=== PATIENT | female | born 1995 | race Caucasian/White ===

== ENCOUNTER 2016-06-03 20:21 | Emergency (ER) | payer BC, OTHER ==
[~2016-06-03] VITALS: Ht 162.6 cm; Wt 49.8 kg
[~2016-06-03 20:21] MED LIST: MTR600X PO; PRENTAB26 PO
[2016-06-03 20:29] VITALS: TEMP 37; Ht 162.6 cm; Wt 49.8 kg
[2016-06-03] MEDS ORDERED: SODIUM CHLORIDE 0.9% 1000ML 2,000 ML IV STA (20:44)
[2016-06-03 21:14] LABS: BASO % 0.2 %; BASO ABS # 0.01 K/uL (0-0.2); COMPLETE YES; EOS % 0.7 %; HEMATOCRIT 42.9 % (37-47); IG% 0.2 %; LYMPH % 16.6 %; LYMPH ABS # 0.96 K/uL (1.2-3.4); MEAN CELL VOLUME 86.1 fL (80-100); MEAN CORPUSCULAR HEMOGLOBIN 30.5 pg (25-34); MEAN CORPUSCULAR HGB CONC 35.4 g/dl (32-36); MONO % 11.2 %; NEUT % 71.1 %; PLATELET COUNT 207 K/uL (130-400); RED BLOOD COUNT 4.98 M/uL (4.2-5.4)
[2016-06-03 21:31] LABS: ALT/SGPT 14 U/L (12-78); BLOOD UREA NITROGEN 7 mg/dl (7-18); BUN/CREATININE RATIO 9.6 (10-20); CARBON DIOXIDE 26 mmol/L (21-32); CHLORIDE 103 mmol/L (98-107); CREATININE 0.72 mg/dl (0.60-1.20); GLUCOSE 98 mg/dl (70-99); POTASSIUM 3.5 mmol/L (3.5-5.1); SODIUM 138 mmol/L (136-145)
[2016-06-03 21:34] LABS: ALKALINE PHOSPHATASE 61 U/L (45-117); AST/SGOT 9 U/L (15-37)
[2016-06-03] MEDS ORDERED: KETOROLAC TROMETHAMINE 30 MG/ML VIAL IV STA (21:35)
[2016-06-03] MEDS ORDERED: ONDANSETRON INJ 2 MG/ML 2 ML VIAL IV STA (21:35)
[2016-06-03] MEDS ORDERED: BCPILLS PO (21:46)
[2016-06-03] MEDS ORDERED: EPP3/2 IM (21:47)
[2016-06-03 22:50] LABS: URINE APPEARANCE CLOUDY (CLEAR); URINE BILIRUBIN NEG (NEG); URINE COLOR YELLOW; URINE EPITHELIAL CELL AUTO >30 /lpf (0-5); URINE NITRITE NEG (NEG); URINE PH 6.5 (4.5-7.5); URINE SPECIFIC GRAVITY 1.019 (1.000-1.030); UROBILINOGEN NEG (NEG)
[2016-06-03 22:52] LABS: MANUAL MICROSCOPIC REQUIRED? NO; REVIEW REQ? NO
[2016-06-04 01:02] LABS: ZZUR CULT IF INDIC CLEAN CATCH YES
[2016-06-04] MEDS ORDERED: ONDANSETRON HOME PACK 4MG OD TAB PO ONE (01:15)
[2016-06-04 01:25] VITALS: BP 99/64; PULSE 63; O2SAT 96
--- NOTE | 2016-06-04 03:01 | EMERGENCY ROOM VISIT NOTE ---
History Report prepared by Ailyn: Rob Pino Under the Supervision of: Dr. Todd Sandoval M.D. First contact with patient: 20:43 Chief Complaint: FLU LIKE SX Stated Complaint: VERY ILL, VOMITING, BODY ACHES History of Present Illness The patient is a 20 year old female who presents to the Emergency Room with complaints of persistent vomiting that started in the middle of the night last night. The patient notes that she has had at least 4 episodes of vomiting. She also complains of body aches, nausea and diarrhea. The patient notes that she is not able to keep anything down. She denies eating anything different. 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 Last menstrual cycle was last month. Patient denies any vaginal bleeding or discharge. Pt denies LOC, headache, fevers, chills, diaphoresis, visual changes, neck pain, chest pain, breathing difficulties, abdominal pain, back pain, melena, hematochezia, urinary symptoms , numbness, lymphadenopathy, rash, or other complaints. Source of History: patient Onset: middle of the night last night Timing: other (persistent) Associated Symptoms: + diarrhea, + nausea Note: Other associated symptoms: body aches Review of Systems See HPI for pertinent positives and negatives. A total of ten systems were reviewed and were otherwise negative. Past Medical & Surgical Medical Problems: (1) Cramping affecting , antepartum (2) Decreased movement in in third trimester, antepartum (3) Disloc Shoulder Nos-Clos (4) Nail avulsion, finger (5) Nausea and vomiting during (6) Surgical Problems: (1) Hx of tonsillectomy Family History Cancer Diabetes mellitus Heart disease Hypertension Social History Smoking Status: Current Every Day Smoker Alcohol Use: none Drug Use: none Marital Status: single Housing Status: lives with family Occupation Status: student Current/Historical Medications Scheduled Control Pills ( Control Pills), 1 TAB PO DAILY Scheduled PRN Epinephrine (Epipen), 0.3 MG IM UD PRN for ALLERGIC REACTION Allergies Coded Allergies: BEE STING (Verified Allergy, Severe, ANAPHYLAXIS, 07/03/15) Physical Exam Vital Signs Date Time Temp Pulse Resp B/P Pulse Ox O2 Delivery O2 Flow Rate FiO2 06/04/16 01:25 63 18 99/64 96 06/04/16 00:59 63 18 99/64 96 Room Air 06/03/16 23:31 81 18 103/48 97 Room Air 06/03/16 22:33 67 91/41 06/03/16 20:29 37.0 88 18 117/67 98 Room Air Physical Exam GENERAL: Awake, alert, well appearing, in no acute distress HEAD: Normocephalic, atraumatic. No edema. EYES: Normal conjunctiva. Sclera non-icteric. OROPHARYNX: Lips, tongue, and mucosa unremarkable. No erythema or exudate. NECK: Supple. No nuchal rigidity. FROM. No adenopathy. RESPIRATORY: CTA bilaterally. No wheezes rales or rhonchi. CARDIAC: Borderline tachycardic rate, normal rhythm. ABDOMEN: Soft, non distended. no tenderness to palpation. No rebound or guarding. MUSCULOSKELETAL: Atraumatic. No edema. NEURO: Normal sensorium. SKIN: No rash or jaundice noted Medical Decision & Procedures Laboratory Results 06/03/16 20:58 Red Blood Count 4.98, Mean Corpuscular Volume 86.1, Mean Corpuscular Hemoglobin 30.5, Mean Corpuscular Hemoglobin Concent 35.4, Mean Platelet Volume 10.0, Neutrophils (%) (Auto) 71.1, Lymphocytes (%) (Auto) 16.6, Monocytes (%) (Auto) 11.2, Eosinophils (%) (Auto) 0.7, Basophils (%) (Auto) 0.2, Neutrophils # (Auto ) 4.13, Lymphocytes # (Auto) 0.96, Monocytes # (Auto) 0.65, Eosinophils # (Auto ) 0.04, Basophils # (Auto) 0.01 06/03/16 20:58 Test 06/03/16 20:58 06/03/16 22:29 White Blood Count 5.80 K/uL (4.8-10.8) Red Blood Count 4.98 M/uL (4.2-5.4) Hemoglobin 15.2 g/dL (12.0-16.0) Hematocrit 42.9 % (37-47) Mean Corpuscular Volume 86.1 fL (80-100) Mean Corpuscular Hemoglobin 30.5 pg (25-34) Mean Corpuscular Hemoglobin Concent 35.4 g/dl (32-36) Platelet Count 207 K/uL (130-400) Mean Platelet Volume 10.0 fL (7.4-10.4) Neutrophils (%) (Auto) 71.1 % Lymphocytes (%) (Auto) 16.6 % Monocytes (%) (Auto) 11.2 % Eosinophils (%) (Auto) 0.7 % Basophils (%) (Auto) 0.2 % Neutrophils # (Auto) 4.13 K/uL (1.4-6.5) Lymphocytes # (Auto) 0.96 K/uL (1.2-3.4) Monocytes # (Auto) 0.65 K/uL (0.11-0.59) Eosinophils # (Auto) 0.04 K/uL (0-0.5) Basophils # (Auto) 0.01 K/uL (0-0.2) RDW Standard Deviation 42.8 fL (36.4-46.3) RDW Coefficient of Variation 13.5 % (11.5-14.5) Immature Granulocyte % (Auto) 0.2 % Immature Granulocyte # (Auto) 0.01 K/uL (0.00-0.02) Anion Gap 9.0 mmol/L (3-11) Est Creatinine Clear Calc Drug Dose 97.2 ml/min Estimated GFR () 138.7 Estimated GFR (Non- 119.7 BUN/Creatinine Ratio 9.6 (10-20) Calcium Level 9.0 mg/dl (8.5-10.1) Total Bilirubin 0.2 mg/dl (0.2-1) Direct Bilirubin < 0.1 mg/dl (0-0.2) Aspartate Amino Transf (AST/SGOT) 9 U/L (15-37) Alanine Aminotransferase (ALT/SGPT) 14 U/L (12-78) Alkaline Phosphatase 61 U/L (45-117) Total Protein 7.6 gm/dl (6.4-8.2) Albumin 4.2 gm/dl (3.4-5.0) Lipase 74 U/L (73-393) Human Chorionic Gonadotropin, Quant 55028 mIU/mL Urine Color YELLOW Urine Appearance CLOUDY (CLEAR) Urine pH 6.5 (4.5-7.5) Urine Specific [place] 1.019 (1.000-1.030) Urine Protein NEG (NEG) Urine Glucose (UA) NEG (NEG) Urine Ketones 4+ (NEG) Urine Occult Blood NEG (NEG) Urine Nitrite NEG (NEG) Urine Bilirubin NEG (NEG) Urine Urobilinogen NEG (NEG) Urine Leukocyte Esterase TRACE (NEG) Urine WBC (Auto) 5-10 /hpf (0-5) Urine RBC (Auto) 5-10 /hpf (0-4) Urine Hyaline Casts (Auto) 5-10 /lpf (0-5) Urine Epithelial Cells (Auto) >30 /lpf (0-5) Urine Bacteria (Auto) 2+ (NEG) Urine Test POS (NEG) Laboratory results reviewed by me Medications Administered Medications (Trade) Dose Ordered Sig/Zohra Route Start Time Stop Time Status Last Admin Dose Admin Sodium Chloride (Nss 1000ml) 2,000 ml @ 999 mls/hr Q2H1M STAT IV 06/03/16 20:44 06/03/16 22:44 DC 06/03/16 21:06 999 MLS/HR Ketorolac Tromethamine (Toradol Inj) 30 mg NOW STAT IV 06/03/16 21:35 06/03/16 21:36 DC 06/03/16 21:55 30 MG Ondansetron HCl (Zofran Inj) 4 mg NOW STAT IV 06/03/16 21:35 06/03/16 21:36 DC 06/03/16 21:54 4 MG Ondansetron HCl (ZOFRAN ODT 4MG Home Pack) 1 homepack UD ONCE PO 06/04/16 01:15 06/04/16 01:16 DC 06/04/16 01:21 1 HOMEPACK ED Course 4: Ordered NSS 2000 ml @ 999 mls/hr IV 7: The patient was evaluated in room A10. A complete history and physical exam was performed. 5: Ordered Zofran Inj 4 mg IV, Toradol Inj 30 mg IV. 2345: At this time, I reevaluated the patient and she is feeling much better. She is waiting on a confirmation test after her lab results. 0115: Ordered Ondansetron HCl 1 homepack PO. 0117: I reevaluated the patient. Discussed results and discharge instructions: She verbalized understanding and agreement. The patient is ready for discharge. Medical Decision Prior records/ancillary studies reviewed. Triage Nursing notes reviewed and agree them. Additional history obtained from the family. The patient's history was concerning for nausea, vomiting, diarrhea, and abdominal pain. Differential diagnosis: Etiologies such as gastroenteritis, food borne illness, infections, appendicitis , diverticulitis, inflammatory bowel disease, GI bleed, biliary pathology, as well as others were entertained. Physical examination findings: As above. Benign abdomen. ER treatment provided: IV hydration 2 L NSS. IV Zofran IV Toradol On reassessment the patient felt better. Patient was tolerating p.o. intake. Diagnostics interpretation by me: The labs revealed an unremarkable CBC and chemistry panel. Urinalysis is negative. LFTs and lipase negative. Urine was positive. The patient was very surprised by this. Serum performed. HCG was consistent with a 4-6 week gestation. Imaging studies: Deferred The patient presented with vomiting and diarrhea. She had myalgias. She had a benign abdomen. She was hydrated. She was given the above medications and felt significantly better. There was some delay in obtaining a urine specimen due to the patient's symptoms and this was eventually done. The patient had an unremarkable urinalysis but urine test was positive. This was confirmed via serum hCG measurement. The patient appears to be as well. She does not give a history supportive of morning sickness. She has more of a gastroenteritis-like presentation. Since she is doing exceptionally well at this time and is tolerating oral intake I will have her start . The patient was referred to the [facility]. If she worsens in any way she will come back to the emergency room for reevaluation. I gave my usual and customary discussion regarding this issue. By the evaluation outlined above emergent etiologies such as appendicitis, diverticulitis, mesenteric ischemia, aortic pathology, inflammatory bowel disease, renal colic, PUD, biliary pathology, UTI, as well as others were deemed relatively unlikely. The patient and significant other were informed about the findings as listed above. All questions were answered and they were pleased with the treatment. Return instructions were outlined and the patient was discharged in stable condition. Outpatient prescription management: Zofran home pack The chart was completed utilizing [employer] voice recognition software. Grammatical errors, random word insertions, pronoun errors, and incomplete sentences are an occasional consequence of this system due to software limitations, ambient noise, and hardware issues. Any formal questions or concerns about the content, text, or information contained within the body of this dictation should be directly addressed to the physician for clarification. Impression Primary Impression: Nausea vomiting and diarrhea Additional Impression: First trimester Scribe Attestation The scribe's documentation has been prepared under my direction and personally reviewed by me in its entirety. I confirm that the note above accurately reflects all work, treatment, procedures, and medical decision making performed by me. Departure Information Dispostion Home / Self-Care Referrals No Doctor, Assigned (PCP) Forms HOME CARE DOCUMENTATION FORM, IMPORTANT VISIT INFORMATION Patient Instructions My [facility] Health Problem Qualifiers
== END 2016-06-04 01:29 | disposition home or self-care (01) ==
LOC: C.EDB 20:22 → C.EDA 06-04 01:29
DX: O21.9 Vomiting of pregnancy, unspecified (principal); R19.7 Diarrhea, unspecified; F17.200 Nicotine dependence, unspecified, uncomplicated; Z87.828 Personal history of other (healed) physical injury and trauma; Z98.890 Other specified postprocedural states; Z91.030 Bee allergy status; Z80.9 Family history of malignant neoplasm, unspecified; Z83.3 Family history of diabetes mellitus; Z82.49 Family history of ischemic heart disease and other diseases of the circulatory system

== ENCOUNTER 2016-06-12 11:06 | Emergency (ER) | payer BC, OTHER ==
[~2016-06-12] VITALS: Ht 163.8 cm; Wt 49.4 kg
[~2016-06-12 11:06] MED LIST changes: +BCPILLS PO; +EPP3/2 IM; -MTR600X PO; -PRENTAB26 PO
[2016-06-12 11:20] VITALS: TEMP 36.8; Ht 163.8 cm; Wt 49.4 kg
[2016-06-12] MEDS ORDERED: ONDA4TAB10 SL (11:39)
[2016-06-12] MEDS ORDERED: PEDI1CHW82 PO (11:39)
[2016-06-12] MEDS ORDERED: SODIUM CHLORIDE 0.9% 1000ML 1,000 ML IV STA (11:53)
[2016-06-12] MEDS ORDERED: ONDANSETRON INJ 2 MG/ML 2 ML VIAL IV STA (11:53)
[2016-06-12 12:21] LABS: BASO % 0.2 %; BASO ABS # 0.02 K/uL (0-0.2); COMPLETE YES; EOS % 0.7 %; IG% 0.1 %; LYMPH % 19.4 %; LYMPH ABS # 1.61 K/uL (1.2-3.4); MEAN CELL VOLUME 85.1 fL (80-100); MEAN CORPUSCULAR HEMOGLOBIN 29.8 pg (25-34); MEAN PLATELET VOLUME 9.7 fL (7.4-10.4); MONO % 5.1 %; NEUT % 74.5 %; PLATELET COUNT 258 K/uL (130-400); WHITE BLOOD COUNT 8.31 K/uL (4.8-10.8)
[2016-06-12 12:38] LABS: ALT/SGPT 16 U/L (12-78); AST/SGOT 9 U/L (15-37); BLOOD UREA NITROGEN 8 mg/dl (7-18); BUN/CREATININE RATIO 11.9 (10-20); CARBON DIOXIDE 25 mmol/L (21-32); CHLORIDE 105 mmol/L (98-107); CREATININE 0.65 mg/dl (0.60-1.20); GLUCOSE 89 mg/dl (70-99); POTASSIUM 3.8 mmol/L (3.5-5.1); SODIUM 139 mmol/L (136-145)
[2016-06-12 12:41] LABS: ALKALINE PHOSPHATASE 55 U/L (45-117)
--- NOTE | 2016-06-12 15:10 | DIAGNOSTIC IMAGING REPORT ---
ULTRASOUND OF THE GRAVID UTERUS AND PELVIS CLINICAL HISTORY: . Fall. Vomiting. COMPARISON STUDY: Pelvic ultrasound dated 11/28/2014. TECHNIQUE: Real-time, grayscale, and color flow sonography of the gravid uterus and pelvis is performed transabdominally. Images are reviewed in the transverse and longitudinal planes. FINDINGS: Uterus: The gravid uterus is mildly enlarged and heterogeneous in echotexture, measuring 9.3 x 5.2 x 5.9 cm. The cervix appears closed. Gestation: There is a single live uterine gestation with an estimated heart rate of 146 bpm. The mean gestational sac diameter measures 2.07 cm, corresponding to estimated age of 6 weeks 3 days. The pole measures 1.29 cm, corresponding to an estimated age of 7 weeks 3 days. A yolk sac is identified. Ovaries: The ovaries are normal in size and morphology. The right ovary measures 2.2 x 2.6 x 2.7 cm and the left ovary measures 2.8 x 1.5 x 1.7 cm. Small follicles are identified. Normal Doppler waveforms are shown within both ovaries. Pelvis: There is trace free fluid in the cul-de-sac. No concerning adnexal lesion is seen. IMPRESSION: 1. There is a single live intrauterine gestation with an estimated age of 7 weeks 3 days by crown-rump length measurement. 2. The ovaries are normal as visualized. 3. Trace nonspecific free fluid is noted in the cul-de-sac. Electronically signed by: Bladimir Espinosa M.D. 06/12/2016 3:09 PM Dictated Date/Time: 06/12/2016 3:04 PM
[2016-06-12] MEDS ORDERED: ONDA4TAB65 PO (15:19)
[2016-06-12 15:31] VITALS: BP 101/55; PULSE 62; O2SAT 99
[2016-06-12 15:49] LABS: URINE APPEARANCE CLEAR (CLEAR); URINE BILIRUBIN NEG (NEG); URINE COLOR YELLOW; URINE NITRITE NEG (NEG); URINE PH 7.5 (4.5-7.5); URINE SPECIFIC GRAVITY 1.021 (1.000-1.030); UROBILINOGEN NEG (NEG)
[2016-06-12 15:53] LABS: MANUAL MICROSCOPIC REQUIRED? NO; REVIEW REQ? NO
--- NOTE | 2016-06-15 09:18 | EMERGENCY ROOM VISIT NOTE ---
ED Visit Note First contact with patient: 11:37 Chief Complaint: Abdominal pain. History of Present Illness: Ms. Reynaga is a 20 year-old white female who ambulates into the ED accompanied by her mother and a male friend complaining of nausea and vomiting and abdominal pain. Historically patient reports is 2 para 1 with protracted nausea vomiting with her first . Patient reports her last normal menstrual cycle was in mid April. Patient reports she was found to be 4-6 weeks on June 04. She has not been able to follow-up with her [facility] physician until later this month. She reports since her diagnosis she has been having daily nausea and vomiting with 2-3 episodes of vomiting every day. After her vomiting resolves so does her nausea. She's had no other associated symptoms with her nausea and vomiting. Today, approximately 2-3 hours ago, she reports she was walking on a icey driveway she slipped and struck her own abdomen with her elbow. Since that time she reports she's been having bilateral mid abdominal pain just inferior to the umbilicus. She describes this as a stabbing but not sharp pain. She rates her discomfort 4/10. The pain is nonradiating. The pain worsens with palpation and movements at the abdomen. She has not identified any alleviating factors related to the pain. She has not taken any medications for pain prior to arrival at the hospital. Associated with her pain she reports she's had increased nausea/vomiting and has had 6 episodes of vomiting. Patient denies fevers, chills, sweats, skin eruptions, skin color changes, upper respiratory tract symptoms, shortness of breath, chest pain, diarrhea, constipation, rectal bleeding, black/tarry stools, urinary symptoms, hematuria, vaginal bleeding, vaginal discharge, back/flank pain. Review of Systems: As noted above in history of present illness. All body systems were reviewed and found to be negative as noted above. Past Medical History: As previously noted Current Medications: EpiPen, multivitamins. Allergies to Medications: Patient denies. Social History: Patient is currently employed; she feels safe in her home environment; she admits to tobacco use. Physical Examination: Vital Signs: Date Time Temp Pulse Resp B/P Pulse Ox O2 Delivery O2 Flow Rate FiO2 06/12/16 15:31 62 16 101/55 99 Room Air 06/12/16 13:42 62 16 93/57 99 Room Air 06/12/16 12:59 68 06/12/16 11:20 36.8 99 16 98/64 98 Room Air GENERAL: 20-year-old female in mild distress due to pain, nontoxic-appearing, afebrile and hemodynamically stable. NEUROLOGICAL: Awake, alert and oriented to person, place and time. Answering questions appropriately and following commands. Normal gait. Good hand eye coordination. SKIN: Warm, dry and pink. No soft tissue eruptions or trauma noted. HEENT: Atraumatic and normocephalic. PERRL. Sclera white and conjunctiva pink. Oral cavity moist and pink. Pharynx is nonerythematous or edematous. Speech normal. No lymphadenopathy. Trachea midline. No jugular venous distention. BACK: No tenderness over the bony spine. No CVA tenderness. THORAX: Lungs sounds are clear to auscultation and equal bilaterally with symmetrical chest wall. No wheezing, rales or rhonchi. No crepitus, tenderness , subcutaneous air or deformities noted. HEART: Regular rate and rhythm. No gallops, rubs or murmurs are appreciated. ABDOMEN: Flat and soft with mild mid quadrant tenderness and mild right upper quadrant tenderness. Positive bowel sounds in all quadrants. No guarding, rigidity or organomegaly. EXTREMITIES: Moves all extremities well on command and with purpose. All distal neurovascular statuses are intact and equal bilaterally. ED Course: Patient is assessed as noted above. Laboratory Testing: Test 06/12/16 12:00 06/12/16 15:15 Range/Units White Blood Count 8.31 4.8-10.8 K/uL Red Blood Count 4.70 4.2-5.4 M/uL Hemoglobin 14.0 12.0-16.0 g/dL Hematocrit 40.0 37-47 % Mean Corpuscular Volume 85.1 80-100 fL Mean Corpuscular Hemoglobin 29.8 25-34 pg Mean Corpuscular Hemoglobin Concent 35.0 32-36 g/dl Platelet Count 258 130-400 K/uL Mean Platelet Volume 9.7 7.4-10.4 fL Neutrophils (%) (Auto) 74.5 % Lymphocytes (%) (Auto) 19.4 % Monocytes (%) (Auto) 5.1 % Eosinophils (%) (Auto) 0.7 % Basophils (%) (Auto) 0.2 % Neutrophils # (Auto) 6.19 1.4-6.5 K/uL Lymphocytes # (Auto) 1.61 1.2-3.4 K/uL Monocytes # (Auto) 0.42 0.11-0.59 K/uL Eosinophils # (Auto) 0.06 0-0.5 K/uL Basophils # (Auto) 0.02 0-0.2 K/uL RDW Standard Deviation 41.2 36.4-46.3 fL RDW Coefficient of Variation 13.3 11.5-14.5 % Immature Granulocyte % (Auto) 0.1 % Immature Granulocyte # (Auto) 0.01 0.00-0.02 K/uL Sodium Level 139 136-145 mmol/L Potassium Level 3.8 3.5-5.1 mmol/L Chloride Level 105 98-107 mmol/L Carbon Dioxide Level 25 21-32 mmol/L Anion Gap 9.0 3-11 mmol/L Blood Urea Nitrogen 8 7-18 mg/dl Creatinine 0.65 0.60-1.20 mg/dl Est Creatinine Clear Calc Drug Dose 106.8 ml/min Estimated GFR () 147.1 Estimated GFR (Non- 126.9 BUN/Creatinine Ratio 11.9 10-20 Random Glucose 89 70-99 mg/dl Calcium Level 9.0 8.5-10.1 mg/dl Total Bilirubin 0.3 0.2-1 mg/dl Direct Bilirubin < 0.1 0-0.2 mg/dl Aspartate Amino Transf (AST/SGOT) 9 15-37 U/L Alanine Aminotransferase (ALT/SGPT) 16 12-78 U/L Alkaline Phosphatase 55 45-117 U/L Total Protein 7.2 6.4-8.2 gm/dl Albumin 4.1 3.4-5.0 gm/dl Lipase 81 73-393 U/L Human Chorionic Gonadotropin, Quant 90546 mIU/mL Urine Color YELLOW Urine Appearance CLEAR CLEAR Urine pH 7.5 4.5-7.5 Urine Specific [place] 1.021 1.000-1.030 Urine Protein NEG NEG Urine Glucose (UA) NEG NEG Urine Ketones 1+ NEG Urine Occult Blood NEG NEG Urine Nitrite NEG NEG Urine Bilirubin NEG NEG Urine Urobilinogen NEG NEG Urine Leukocyte Esterase NEG NEG Ultrasound: Was reviewed by myself and read the radiologist showing a single Review of stay she with estimated age of 7 weeks and 3 days with a heart rate of 146, normal-appearing ovaries, trace nonspecific free fluid in the cul- de-sac. Patient was hydrated with normal saline and received 4 mg of Zofran IV. Patient was reassessed multiple times during her stay in the emergency department. Prior to discharge patient was trying to crackers and juice and had no return nausea/vomiting. Patient's case was reviewed with Dr. Bernard; we agreed on diagnostic approach, treatment, disposition and plan. Patient was educated about tonight's findings and instructed on her treatment plan; she verbalizes understanding and agreement with this plan. Clinical Impression: Nausea and vomiting during . Abdominal pain. Decision-Making: Initially my differential diagnosis I considered morning sickness, hyperemesis gravidarum, ectopic , miscarriage, gastroenteritis and other causes. Disposition: Patient discharged home in stable condition accompanied by her boyfriend; prior to departure she was reassessed and subjectively reported she was feeling much better and had resolution of nausea and has not vomited since she ED and she had resolution of all abdominal pain. Plan: Patient was encouraged use 650 mg of acetaminophen every 6 hours as needed for pain. Patient did report she had no DVT Zofran but requested oral tablets and I provided her with a prescription. Patient was encouraged to stop smoking. Patient was encouraged to follow-up with [facility] physician for a possible earlier appointment. Patient was encouraged return ED for worsening pain, vaginal bleeding, worsening nausea/vomiting, bloody vomitus, fevers or any new/concerning symptoms.
== END 2016-06-12 15:32 | disposition home or self-care (01) ==
LOC: C.EDB 11:09 → C.EDD 15:32
DX: O21.9 Vomiting of pregnancy, unspecified (principal); O26.891 Other specified pregnancy related conditions, first trimester; R10.9 Unspecified abdominal pain; O99.331 Smoking (tobacco) complicating pregnancy, first trimester; F17.200 Nicotine dependence, unspecified, uncomplicated; Z3A.01 Less than 8 weeks gestation of pregnancy; W00.0XXA Fall on same level due to ice and snow, initial encounter; Y93.01 Activity, walking, marching and hiking; Y99.8 Other external cause status

== ENCOUNTER 2016-11-26 13:54 | Emergency (ER) | payer OTHER ==
[~2016-11-26] VITALS: Ht 162.6 cm; Wt 59.0 kg
[~2016-11-26 13:54] MED LIST changes: -BCPILLS PO; +ONDA4TAB10 SL; +ONDA4TAB65 PO; +PEDI1CHW82 PO
[2016-11-26 13:59] VITALS: TEMP 37; Ht 162.6 cm; Wt 59.0 kg
--- NOTE | 2016-11-26 14:31 | EMERGENCY ROOM VISIT NOTE ---
ED Visit Note First contact with patient: 14:11 CHIEF COMPLAINT: Foot pain HISTORY OF PRESENT ILLNESS: This 21-year-old female patient presents to the emergency department ambulatory complaining of swelling and pain in the and foot at rest and worse with weight bearing. The patient was walking out of her son's veterinary epidemiologist appointment and he was fussy she could not see where she was going and stepped down off a curb and twisted her right foot. The patient rates the pain as sharp and 5/10. The patient has no relief of the pain. The patient is able to walk. No numbness or weakness. No ankle pain. There are no lacerations of the foot. The patient is able to move all of their toes and their ankle without pain. Patient denies previous injury to this foot. She did not fall to the ground. She did not hit her head. She did not strike her abdomen. She is 8 months . She has not had any abdominal pain, cramping, vaginal bleeding. REVIEW OF SYSTEMS: GENERAL: A 6 system review of systems was completed with positives and pertinent negatives in the HPI. ALLERGIES: Bee sting MEDICATIONS: Patient denies PMH: The patient is 8 months SOCIAL HISTORY: The patient lives locally with family PHYSICAL EXAM: Vital Signs: Reviewed Nurse's notes, vital signs stable. GENERAL : This is a 21-year-old female, in no acute distress, but appears in pain, well- developed, well-nourished. MUSCULOSKELETAL: There is no visual deformity of the right foot. There is no erythema but mild ecchymosis. There is no warmth. There is tenderness and swelling over the fifth metatarsal of the right foot. The range of motion of the foot is mildly limited secondary to pain. There is no tenderness over the plantar fascia. Dorsi flexion 5/5 and Plantar flexion 5/5. The skin is intact and there are no lacerations or puncture wounds. Dorsalis pedis pulse 2+. Capillary refill less than 2 seconds. EMERGENCY DEPARTMENT COURSE: I examined the patient. An X-ray of the right foot was reviewed by myself and radiology and reveals fifth metatarsal fracture. The patient is 8 months . She also has a 1 year old at home. She does not feel that she could use crutches safely. She was placed in a walking boot. She should contact orthopedics to schedule a follow-up appointment for further evaluation and management. She should return with any worsening symptoms. The patient was discharged home in good condition. RIGHT ANKLE MIN 3 VIEWS ROUTINE CLINICAL HISTORY: right ankle injury Right trauma. Pain. COMPARISON: None. DISCUSSION: Findings consistent with an old mid tibial shaft fracture. No acute abnormality of the ankle. Cortical margins are intact. There is no evidence for soft tissue swelling. IMPRESSION: No acute process. RIGHT FOOT MIN 3 VIEWS ROUTINE CLINICAL HISTORY: 21 years-old Female presenting with right foot pain, injury, twisted right ankle, 8 months . TECHNIQUE: Frontal, oblique, and lateral views of the right foot were obtained. COMPARISON: None. FINDINGS: Nondisplaced fracture of the base of the fifth metacarpal with a transversely oriented radiolucent line at appears to extend to the articular surface with the cuboid. No other acute osseous injury. No malalignment. Overlying soft tissue swelling along the lateral right foot. IMPRESSION: Nondisplaced fracture of the base of the fifth metacarpal with suspected intra-articular extension. Problem List Medical Problems: (1) Disloc Shoulder Nos-Clos Status: Resolved (2) Nail avulsion, finger Status: Resolved Surgical Problems: (1) Hx of tonsillectomy Status: Resolved Current/Historical Medications Scheduled Ondasetron Odt (Zofran Odt), 4 MG SL Q6H Pediatric Multiple Vitamin W/ (Flintstones Gummies Compl), 2 TAB PO DAILY Scheduled PRN Epinephrine (Epipen), 0.3 MG IM UD PRN for ALLERGIC REACTION Ondansetron Hcl (Zofran), 1 TAB PO Q6H PRN for Nausea or Vomiting Allergies Coded Allergies: BEE STING (Verified Allergy, Severe, ANAPHYLAXIS, 11/26/16) Vital Signs Date Time Temp Pulse Resp B/P (MAP) Pulse Ox O2 Delivery O2 Flow Rate FiO2 11/26/16 15:45 97 18 125/67 97 11/26/16 13:59 37.0 85 20 121/84 98 Room Air Departure Information Impression Primary Impression: Closed nondisplaced fracture of fifth right metatarsal bone Dispostion Home / Self-Care Condition GOOD Referrals No Doctor, Assigned (PCP) Gunnar Anderson D.O. Patient Instructions My Bolster Additional Instructions Tylenol according to package instructions for pain Wear the walking boot until seen by orthopedics Contact orthopedics first thing in the morning for a followup appointment and further management Return with worsening symptoms Problem Qualifiers Primary Impression: Closed nondisplaced fracture of fifth right metatarsal bone Encounter type: initial encounter Qualified Codes: S92.354A - Nondisplaced fracture of fifth metatarsal bone, right foot, initial encounter for closed fracture
--- NOTE | 2016-11-26 14:57 | DIAGNOSTIC IMAGING REPORT ---
RIGHT FOOT MIN 3 VIEWS ROUTINE CLINICAL HISTORY: 21 years-old Female presenting with right foot pain, injury, twisted right ankle, 8 months . TECHNIQUE: Frontal, oblique, and lateral views of the right foot were obtained. COMPARISON: None. FINDINGS: Nondisplaced fracture of the base of the fifth metacarpal with a transversely oriented radiolucent line at appears to extend to the articular surface with the cuboid. No other acute osseous injury. No malalignment. Overlying soft tissue swelling along the lateral right foot. IMPRESSION: Nondisplaced fracture of the base of the fifth metacarpal with suspected intra-articular extension. Electronically signed by: Lorne Godinez M.D. 11/26/2016 2:56 PM Dictated Date/Time: 11/26/2016 2:53 PM
--- NOTE | 2016-11-26 14:58 | DIAGNOSTIC IMAGING REPORT ---
RIGHT ANKLE MIN 3 VIEWS ROUTINE CLINICAL HISTORY: right ankle injury Right trauma. Pain. COMPARISON: None. DISCUSSION: Findings consistent with an old mid tibial shaft fracture. No acute abnormality of the ankle. Cortical margins are intact. There is no evidence for soft tissue swelling. IMPRESSION: No acute process. The above report was generated using voice recognition software. It may contain grammatical, syntax or spelling errors. Electronically signed by: Tim Hyde M.D. 11/26/2016 2:57 PM Dictated Date/Time: 11/26/2016 2:57 PM
[2016-11-26 15:45] VITALS: BP 125/67; PULSE 97; O2SAT 97
== END 2016-11-26 15:47 | disposition home or self-care (01) ==
LOC: C.EDB 13:55 → C.EDD 15:47
DX: O9A.211 Injury, poisoning and certain other consequences of external causes complicating pregnancy, first trimester (principal); S92.354A Nondisplaced fracture of fifth metatarsal bone, right foot, initial encounter for closed fracture; X50.1XXA Overexertion from prolonged static or awkward postures, initial encounter; Y93.01 Activity, walking, marching and hiking; Y99.8 Other external cause status; Y92.531 Health care provider office as the place of occurrence of the external cause; Z3A.08 8 weeks gestation of pregnancy; Z90.89 Acquired absence of other organs

== ENCOUNTER 2017-01-26 07:44 | Inpatient (IN) | payer OTHER ==
[~2017-01-26] VITALS: Ht 162.6 cm; Wt 64.5 kg
[2017-01-26] MEDS ORDERED: OXYTOCIN 30 UNITS/500ML NSS IV ONE (07:55)
[2017-01-26] MEDS ORDERED: LACTATED RINGER'S 1000ML 1,000 ML IV PRN (07:58)
[2017-01-26] MEDS ORDERED: LACTATED RINGER'S 1000ML 1,000 ML IV SCH (08:15)
[2017-01-26] MEDS ORDERED: LANOLIN OINT EXT PRN ×2 (08:30)
[2017-01-26] MEDS ORDERED: OXYCODONE/ACETAMINOPHEN 5-325 TAB PO PRN (08:30)
[2017-01-26] MEDS ORDERED: ACETAMINOPHEN/CODEINE 300/30MG TAB PO PRN ×2 (08:30)
[2017-01-26] MEDS ORDERED: OXYTOCIN 30 UNITS/500ML NSS IV PRN (08:30)
[2017-01-26] MEDS ORDERED: DIPHTHERIA/TETANUS/PERTUSSIS 0.5 ML SYR/VIAL IM. ONE (08:30)
[2017-01-26] MEDS ORDERED: HYDROCORTISONE ACETATE 25 MG SUPP PR PRN (08:30)
[2017-01-26] MEDS ORDERED: BENZOCAINE 20% AER SPR 82.5 GM CAN EXT PRN (08:30)
[2017-01-26] MEDS ORDERED: SUPERCREAM 0.870 % 15GM JAR EXT PRN (08:30)
[2017-01-26] MEDS ORDERED: ACETAMINOPHEN 325 MG TAB PO PRN (08:30)
[2017-01-26] MEDS: IBUPROFEN 600 MG TAB PO PRN ×2 (09:08→20:01)
[2017-01-26 09:36] LABS: HEMATOCRIT 39.3 % (37-47); MEAN CELL VOLUME 88.5 fL (80-100); MEAN CORPUSCULAR HEMOGLOBIN 29.7 pg (25-34); MEAN CORPUSCULAR HGB CONC 33.6 g/dl (32-36); MEAN PLATELET VOLUME 9.6 fL (7.4-10.4); PLATELET COUNT 189 K/uL (130-400); RED BLOOD COUNT 4.44 M/uL (4.2-5.4); WHITE BLOOD COUNT 13.45 K/uL (4.8-10.8)
--- NOTE | 2017-01-26 09:42 | DELIVERY SUMMARY ---
DATE OF OPERATION: 01/26/2017 DATE OF DELIVERY: 01/26/2017 TIME OF DELIVERY: 8:17 a.m. TIME OF PLACENTAL DELIVERY: 8:20 a.m. DELIVERY NOTE: The patient is a 21-year-old 3, para 1 at 40 weeks gestation who presented to labor and delivery on the morning of 01/26/2017 in active labor. She was found to be completely dilated with the urge to push. Rupture of membranes was performed at 8:14 a.m. with clear amniotic fluid noted. She pushed to delivery at 8:17 a.m. She delivered a viable male in the left occiput anterior position, nuchal cord x1 was reduced at delivery. The baby was delivered and placed on the patient's abdomen. Cord was clamped x2 and cut. Weight was 6 lb. 13 oz. with Apgars of 8 at 1 minute and 9 at 5 minutes. Please see nursing notes for further baby assessment. Cord blood was then obtained and intact placenta with 3-vessel cord was delivered at 8:20 a.m. Oxytocin infusion was then began. The lower uterine segment and vagina was cleared of any blood clots and debris. Exploration of the perineum noted no lacerations. Estimated blood loss was 250 mL. All sponge and instrument counts were found to be correct x2. Both patient and baby tolerated the delivery well and were sent to recovery with stable vital signs. I attest to the content of the Intraoperative Record and any orders documented therein. Any exception s are noted below.
[2017-01-26 10:38] VITALS: Ht 162.6 cm; Wt 64.5 kg
[2017-01-26 14:00] VITALS: BP 121/74; PULSE 59; TEMP 37
[2017-01-26 20:00] VITALS: BP 132/89; PULSE 75; TEMP 36.9
[2017-01-26] MEDS: DOCUSATE SODIUM 100 MG CAP PO SCH (20:01)
[2017-01-26 23:35] VITALS: BP 123/77; PULSE 55; TEMP 36.7
[2017-01-27 05:00] VITALS: BP 124/69; PULSE 71; TEMP 36.7
[2017-01-27 06:57] LABS: HEMATOCRIT 37.5 % (37-47)
[2017-01-27] MEDS ORDERED: FERROUS SULFATE 325 MG TAB PO SCH (08:00)
[2017-01-27] MEDS ORDERED: PRENATAL VITAMIN TAB PO SCH (08:00)
[2017-01-27] MEDS: DOCUSATE SODIUM 100 MG CAP PO SCH (08:05)
[2017-01-27 08:14] VITALS: BP 126/75; PULSE 58; TEMP 36.7
--- NOTE | 2017-01-27 08:34 | OB/GYN Progress Note ---
TECHNICAL FELLOW Progress Note Date of Service: Jan 27, 2017. Patient is seen and examined. She feels well, no complaints. Likes to be discharged today She has 19 month old at home Ambulating without dizziness Voiding without difficulty Tolerating regular diet with out N&V Bleeding is minimal No fever/ chills/ CP/ SOB/ N&V/ Leg pain Bottle feeding without problems Discussed contraception with patient in details. Abstinence for 6 weeks, BCP, progestin only pills, Nexplanon, IUD's, Mirena and Paragard., She likes to get an IUD Date Time Temp Pulse Resp B/P (MAP) Pulse Ox O2 Delivery O2 Flow Rate FiO2 01/27/17 08:14 36.7 58 20 126/75 (92) 01/27/17 05:00 36.7 71 16 124/69 (87) Room Air 01/26/17 23:35 36.7 55 18 123/77 (92) Room Air 01/26/17 23:35 Room Air 01/26/17 20:00 36.9 75 20 132/89 (103) Room Air 01/26/17 14:00 37.0 59 20 121/74 (90) Last 24 Hours Test 01/26/17 09:20 01/27/17 06:34 White Blood Count 13.45 K/uL Red Blood Count 4.44 M/uL Hemoglobin 13.2 g/dL 12.2 g/dL Hematocrit 39.3 % 37.5 % Mean Corpuscular Volume 88.5 fL Mean Corpuscular Hemoglobin 29.7 pg Mean Corpuscular Hemoglobin Concent 33.6 g/dl RDW Standard Deviation 44.1 fL RDW Coefficient of Variation 13.6 % Platelet Count 189 K/uL Mean Platelet Volume 9.6 fL PE: General: Alert, orientedx3, NAD Abd: soft, NT, fundus firm, below Umbilicus Perineum intact, Lochia rubra minimal Ext; NT, no edema AP: 21 yo s/p , ppd# 1 VSS Afebrile doing well Continue routine care All questions were answered D/C home when baby will be discharged
--- NOTE | 2017-01-27 08:35 | Discharge Instructions ---
Discharge Instructions Date of Service Jan 27, 2017. Admission Reason for Admission: Labor Check Discharge Discharge Diagnosis / Problem: Discharge Goals Goal(s): Routine recovery after delivery Medications Continue Dispensed Medications: lansinoh Activity Recommendations Activity Limitations: as noted below ACTIVITY RECOMMENDATIONS: * Gradual return to full activity over the next 2-3 weeks. * No lifting - nothing heavier than baby over the next 2-3 weeks. * Do not engage in vigorous exercise, sexual activity or sports until cleared by your physician. * Do not drive or operate any motorized equipment until cleared by your physician. * You may shower/bathe daily. BREAST CARE: If you are not breast feeding: * Wear a supportive bra 24 hours a day for one to two weeks. * Avoid stimulating your breasts and nipples as much as possible during the first few weeks after delivery. * When taking a shower, have the warm water hit your back, not breasts. * When your breasts feel full, apply ice packs. Usually three to four times a day helps ease the discomfort. * Take a mild pain medication (Tylenol/Motrin) when you are uncomfortable. If breast feeding: * Use breast milk to lubricate nipples. Lansinoh cream may be used for sore nipples. You do not need to remove cream prior to breast feeding. If using a different brand of cream, check the label for directions regarding removal of cream prior to nursing. * Wear a supportive bra. * If having problems with breasts or breast feeding, call a tax credit leasing consultant or your health care provider. EPISIOTOMY CARE: After delivery, if you have an episiotomy (stitches), the following steps will ease discomfort and aid healing. * For the first 24 hours after delivery, place ice packs next to your episiotomy to help reduce swelling. * After the first 24 hour-period, sitz baths, either portable or in the tub, are suggested. A shower with a shower arm sprayed over the episiotomy may be comforting. * Amita care should be done after each voiding and bowel movement. Squirt warm water from a plastic bottle over the perineum (region of the body between the anus and urinary opening) and pat dry. * Use Dermoplast to ease discomfort. Shake container. [place] directly over the episiotomy. * Place a Tucks on a clean sanitary pad next to your episiotomy. OVER THE COUNTER MEDICATION: * For discomfort or pain, you may use Acetaminophen (Tylenol), Ibuprofen (Advil ), or Naproxen (Aleve) following the package directions. * For constipation you may use Colace following the package directions. SPECIAL CARE INSTRUCTIONS: When you are discharged from the hospital, it is important for you to follow the instructions listed below: * During the first week at home, you should be able to care for yourself and your baby. In addition, the usual light household activities are encouraged. * Limit your activities to the way you feel. Do not try to clean the house or move furniture. Be sensible. * If you actively engage in sports and have done so up until the time of your delivery, you may resume these activities as soon as you feel able. This may take up to one month or even longer. Use good judgment. * Continue to take your vitamins for at least six weeks after the of your baby. * Your diet need not be limited unless you were on a special diet before your delivery. Breast-feeding mothers need around 2500 calories per day and at least 64-80 ounces of fluid per day (8 to 10 glasses). * You should eat foods from the four major food groups. Crash diets or fad diets are to be avoided. Eating lean meats, fresh fruits and vegetables, low-fat dairy products, high fiber foods and a regular exercise program, will help you get back to your pre- weight without putting your health at risk. * Constipation is sometimes a problem after delivery. Take a mild laxative as needed. If breast feeding, Milk of Magnesia is acceptable to use. You may use a suppository or Fleets enema if no episiotomy. * A daily shower or tub bath is suggested. Be sure to thoroughly and gently dry the perineum. * A bloody vaginal discharge will usually continue until around four weeks post . A small amount of bleeding may continue for as long as six weeks. Vaginal discharge changes from the bright red bleeding after delivery to pink then brownish and finally yellowish-pink before becoming white and disappearing. * Bleeding may increase with activity. Your first period may come in 4-8 weeks. If you are breast feeding, your period may be delayed even longer. * [place] (sex) can begin whenever both you and your partner feel comfortable and do not have any form of genital infection. It is recommended that you wait until after your return appointment and discuss with your physician. If you have questions, please talk to your health care practitioner. A condom should be used to prevent infection and . * Foreplay, gentle intercourse and lubrication is very important the first several times to prevent pain. A water-based lubricant such as K-Y jelly or Astroglide may be used. * Tampons may be used six weeks after delivery. * Douching should be avoided for 6 weeks after delivery. * If you have RH negative blood and your baby is RH positive, you will receive RHOGAM by injection prior to discharge. The nurse will give you a card to keep with you that has the date and place that you received RHOGAM after delivery. * During your care, you had a Rubella screen done to check for the presence of rubella antibodies in your blood. If your test was negative, you will receive a Rubella vaccine prior to discharge. This vaccine may cause a fever, soreness at the injection site and flu-like symptoms. If these symptoms persist, notify your health care practitioner. is not advised for three months after a Rubella vaccine. There is a higher chance of having a baby with defects if conceived within three months of getting the vaccine. * If you were discharged 24 hours from delivery or before 48 hours: Visiting nurses will come to your home 48 hours after discharge to assess you and your baby. The visiting nurse will meet with you while you are in the hospital to arrange a time and get directions to your home. * Verbalizes understanding of car seat law as reviewed with patient nursing. * Car Seat hand-out given and reviewed with patient by nursing. * Shaken baby information reviewed with patient by nursing. Call you doctor if: * Heavy bleeding (saturating several pads an hour) or passing clots the size of your fist. * A fever >101 degrees F (38.3 degrees C) on two occasions four hours apart and/or chills. * Unusual pain in the pelvic or vaginal areas. * "Baby Blues" lasting longer than two weeks. If you have any questions or concerns, call your health care practitioner at . FOLLOW-UP VISIT: * Please call the office at to schedule a 6 week examination. It is important you keep this appointment. * It is important for you to make arrangements for either yearly or twice yearly check-ups thereafter. . Current Hospital Diet Patient's current hospital diet: Regular OB Diet Discharge Diet Recommended Diet: Regular Diet Pending Studies Studies pending at discharge: no Medical Emergencies . Who to Call and When: Medical Emergencies: If at any time you feel your situation is an emergency, please call 911 immediately. . Non-Emergent Contact Non-Emergency issues call your: Primary Care Provider, Surgeon Call Non-Emergent contact if: temperature is above 100.5, your pain is not controlled, your pain is worsening . . "Provider Documentation" section prepared by Ji Lemon. . VTE Core Measure Inpt VTE Proph given/why not?: Treatment not indicated
[2017-01-27] MEDS: IBUPROFEN 600 MG TAB PO PRN (13:40)
[2017-01-27 15:11] VITALS: BP_DIAS 75; PULSE 58; TEMP 36.7
[2017-01-27] MEDS ORDERED: BISACODYL 5 MG TABEC PO SCH (20:00)
[2017-01-28] MEDS ORDERED: BISACODYL 10 MG SUPP PR PRN (07:00)
== END 2017-01-27 15:09 | disposition home or self-care (01) | DRG 775 ==
LOC: C.OPB 07:44 → C.LD 07:44 → C.OPB 07:59 → C.OBG 14:01
PROVIDERS: ADMIT Obstetrics & Gynecology; ATTEND Obstetrics & Gynecology
PROC: 10E0XZZ Delivery of Products of Conception, External Approach (ICD-10-PCS; principal; 2017-01-26)
DX: O69.81X0 Labor and delivery complicated by cord around neck, without compression, not applicable or unspecified (principal); Z37.0 Single live birth; Z3A.40 40 weeks gestation of pregnancy

== ENCOUNTER 2017-05-09 19:44 | Emergency (ER) | payer OTHER ==
[~2017-05-09] VITALS: Ht 162.6 cm; Wt 51.8 kg
[~2017-05-09 19:44] MED LIST changes: -EPP3/2 IM; -ONDA4TAB10 SL; -ONDA4TAB65 PO
[2017-05-09 19:47] VITALS: Ht 162.6 cm; Wt 51.8 kg
[2017-05-09] MEDS ORDERED: SODIUM CHLORIDE 0.9% 1000ML 1,000 ML IV STA (20:34)
[2017-05-09] MEDS ORDERED: ACETAMINOPHEN 500 MG TAB PO STA (20:34)
[2017-05-09 21:07] LABS: BASO % 0.2 %; BASO ABS # 0.02 K/uL (0-0.2); EOS % 0.3 %; EOS ABS # 0.03 K/uL (0-0.5); HEMOGLOBIN 14.2 g/dL (12.0-16.0); IG# 0.02 K/uL (0.00-0.02); LYMPH % 9.3 %; LYMPH ABS # 0.92 K/uL (1.2-3.4); MEAN CELL VOLUME 85.4 fL (80-100); MEAN CORPUSCULAR HEMOGLOBIN 29.6 pg (25-34); MEAN CORPUSCULAR HGB CONC 34.6 g/dl (32-36); MEAN PLATELET VOLUME 9.4 fL (7.4-10.4); MONO % 6.3 %; MONO ABS # 0.62 K/uL (0.11-0.59); NEUT % 83.7 %; PLATELET COUNT 164 K/uL (130-400); RED CELL DISTRIBUTION WIDTH CV 13.8 % (11.5-14.5); WHITE BLOOD COUNT 9.91 K/uL (4.8-10.8)
--- NOTE | 2017-05-09 21:29 | DIAGNOSTIC IMAGING REPORT ---
CHEST 2 VIEWS ROUTINE CLINICAL HISTORY: Fever, chills, aches, vomiting, diarrhea. COMPARISON STUDY: 05/22/2010 FINDINGS: The cardiac and mediastinal contours are normal. There is no evidence of focal pulmonary consolidation. There is no evidence of failure. No pleural effusions are visualized.[ IMPRESSION: No active disease in the chest. Electronically signed by: Alejandro Crawley M.D. 05/09/2017 9:28 PM Dictated Date/Time: 05/09/2017 9:27 PM
[2017-05-09] MEDS ORDERED: EPP3/2 IM (21:47)
[2017-05-09 22:11] LABS: INFLUENZA B ANTIGEN Neg for Influ B (NEG)
[2017-05-09] MEDS ORDERED: KETOROLAC TROMETHAMINE 15 MG/ML VIAL IV STA (22:35)
[2017-05-09] MEDS ORDERED: KETOROLAC TROMETHAMINE 30 MG/ML VIAL ONE (22:46)
[2017-05-09 22:53] LABS: ALBUMIN 3.6 gm/dl (3.4-5.0); CALCIUM 8.6 mg/dl (8.5-10.1); CREATININE 0.82 mg/dl (0.60-1.20); POTASSIUM 3.5 mmol/L (3.5-5.1); TOTAL PROTEIN 7.1 gm/dl (6.4-8.2)
--- NOTE | 2017-05-09 23:17 | EMERGENCY ROOM VISIT NOTE ---
History First contact with patient: 20:23 Chief Complaint: FLU LIKE SX Stated Complaint: BODYACHES, VOMITING, FEVER, DIARRHEA History of Present Illness The patient is a 21 year old female who presents to the Emergency Room via private vehicle with complaints of "body aches, vomiting, fever, diarrhea". The patient states that Saturday night she developed vomiting, followed by diarrhea and then felt better Saturday and yesterday. She states that now she has bodyaches, and vomited 4 times today. She has decreased appetite. She notes that the vomiting has improved some. There is associated chills but no fever noted. She denies abdominal pain, and a minimal cough. There is a sore throat. She also notes that she received an IUD last week. There is no dysuria. There is bleeding for the first 2 days afterIUD, however no bleeding or pain now. Review of Systems A complete 10-point Review of Systems was discussed with the patient, with pertinent positives and negatives listed in the History of Present Illness. All remaining Review of Systems questions can be considered negative unless otherwise specified. Past Medical/Surgical History Medical Problems: (1) Cramping affecting , antepartum (2) Decreased movement in in third trimester, antepartum (3) Disloc Shoulder Nos-Clos (4) Nail avulsion, finger (5) Nausea and vomiting during (6) Surgical Problems: (1) Hx of tonsillectomy Family History Cancer Diabetes mellitus Heart disease Hypertension Social History Smoking Status: Never Smoker Alcohol Use: none Drug Use: none Marital Status: single Housing Status: lives with family Occupation Status: student Current/Historical Medications Scheduled Pediatric Multiple Vitamin W/ (Flintstones Gummies Compl), 2 TABS PO DAILY Scheduled PRN Epinephrine (Epipen), 0.3 MG IM UD PRN for ALLERGIC REACTION Physical Exam Vital Signs Date Time Temp Pulse Resp B/P (MAP) Pulse Ox O2 Delivery O2 Flow Rate FiO2 05/09/17 23:19 38.1 82 16 111/51 97 05/09/17 23:15 38.1 05/09/17 22:16 101 16 114/70 97 Room Air 05/09/17 19:47 39.3 104 18 98/62 98 Room Air Physical Exam VITAL SIGNS - Vital signs and nursing notes were reviewed. Stable. Tachycardic. Afebrile. GENERAL -21-year-old female appearing her stated age who is in no acute distress. Nontoxic in appearance. Communicates well with provider and answers questions appropriately. SKIN - Without rashes. HEAD - NC/AT. EYES - PERRL with EOMI bilaterally. Sclera anicteric. EARS - No deformities of external structures noted on gross examination bilaterally. No pain elicited with palpation of the tragus bilaterally. External auditory canals without discharge or otorrhea. Tympanic membranes pearly glover without retraction or bulging. No fluid or purulent material visualized behind the TM. Handle of malleus, umbo, cone of light, pars tensa/ flaccid all easily visualized. NOSE - Midline and without cyanosis. No epistaxis or purulent drainage noted. Septum midline without deviation or septal hematoma noted. MOUTH/OROPHARYNX - Without perioral cyanosis. Buccal mucosa pink and moist and without leukoplakia. Tongue midline with equal elevation of palate bilaterally. Generalized hyperemia/erythema of the posterior pharynx. Fair dentition noted. Tonsils surgically absent. NECK - Neck with FROM. Supple to palpation.No nuchal rigidity. LUNGS - Chest wall symmetric without accessory muscle use, intercostals retractions, or central cyanosis. Normal vesicular breath sounds CTA B/L. No wheezes, rales, or rhonchi appreciated. CARDIAC - RRR with S1/S2. No murmur, rubs, or gallops appreciated. PSYCH - A&O, and cooperates fully with examiner. Pt is very pleasant and interacts well with examiner. Medical Decision & Procedures ER Provider Diagnostic Interpretation: CHEST 2 VIEWS ROUTINE CLINICAL HISTORY: Fever, chills, aches, vomiting, diarrhea. COMPARISON STUDY: 05/22/2010 FINDINGS: The cardiac and mediastinal contours are normal. There is no evidence of focal pulmonary consolidation. There is no evidence of failure. No pleural effusions are visualized.[ IMPRESSION: No active disease in the chest. Electronically signed by: Alejandro Crawley M.D. 05/09/2017 9:28 PM Dictated Date/Time: 05/09/2017 9:27 PM Laboratory Results 05/09/17 20:50 Red Blood Count 4.80, Mean Corpuscular Volume 85.4, Mean Corpuscular Hemoglobin 29.6, Mean Corpuscular Hemoglobin Concent 34.6, Mean Platelet Volume 9.4, Neutrophils (%) (Auto) 83.7, Lymphocytes (%) (Auto) 9.3, Monocytes (%) (Auto) 6.3, Eosinophils (%) (Auto) 0.3, Basophils (%) (Auto) 0.2, Neutrophils # (Auto) 8.30, Lymphocytes # (Auto) 0.92, Monocytes # (Auto) 0.62, Eosinophils # (Auto) 0.03, Basophils # (Auto) 0.02 05/09/17 20:50 Test 05/09/17 20:50 05/09/17 21:35 05/09/17 21:42 White Blood Count 9.91 K/uL (4.8-10.8) Red Blood Count 4.80 M/uL (4.2-5.4) Hemoglobin 14.2 g/dL (12.0-16.0) Hematocrit 41.0 % (37-47) Mean Corpuscular Volume 85.4 fL (80-100) Mean Corpuscular Hemoglobin 29.6 pg (25-34) Mean Corpuscular Hemoglobin Concent 34.6 g/dl (32-36) Platelet Count 164 K/uL (130-400) Mean Platelet Volume 9.4 fL (7.4-10.4) Neutrophils (%) (Auto) 83.7 % Lymphocytes (%) (Auto) 9.3 % Monocytes (%) (Auto) 6.3 % Eosinophils (%) (Auto) 0.3 % Basophils (%) (Auto) 0.2 % Neutrophils # (Auto) 8.30 K/uL (1.4-6.5) Lymphocytes # (Auto) 0.92 K/uL (1.2-3.4) Monocytes # (Auto) 0.62 K/uL (0.11-0.59) Eosinophils # (Auto) 0.03 K/uL (0-0.5) Basophils # (Auto) 0.02 K/uL (0-0.2) RDW Standard Deviation 43.0 fL (36.4-46.3) RDW Coefficient of Variation 13.8 % (11.5-14.5) Immature Granulocyte % (Auto) 0.2 % Immature Granulocyte # (Auto) 0.02 K/uL (0.00-0.02) Anion Gap 7.0 mmol/L (3-11) Est Creatinine Clear Calc Drug Dose 88.0 ml/min Estimated GFR () 117.7 Estimated GFR (Non- 101.6 BUN/Creatinine Ratio 7.4 (10-20) Calcium Level 8.6 mg/dl (8.5-10.1) Total Bilirubin 0.3 mg/dl (0.2-1) Aspartate Amino Transf (AST/SGOT) 11 U/L (15-37) Alanine Aminotransferase (ALT/SGPT) 24 U/L (12-78) Alkaline Phosphatase 73 U/L (45-117) Total Protein 7.1 gm/dl (6.4-8.2) Albumin 3.6 gm/dl (3.4-5.0) Globulin 3.5 gm/dl (2.5-4.0) Albumin/Globulin Ratio 1.0 (0.9-2) Influenza Type A Antigen Neg for Influ A (NEG) Influenza Type B Antigen Neg for Influ B (NEG) Urine Color YELLOW Urine Appearance CLEAR (CLEAR) Urine pH 7.0 (4.5-7.5) Urine Specific [place] 1.007 (1.000-1.030) Urine Protein NEG (NEG) Urine Glucose (UA) NEG (NEG) Urine Ketones NEG (NEG) Urine Occult Blood 3+ (NEG) Urine Nitrite NEG (NEG) Urine Bilirubin NEG (NEG) Urine Urobilinogen NEG (NEG) Urine Leukocyte Esterase NEG (NEG) Urine WBC (Auto) 1-5 /hpf (0-5) Urine RBC (Auto) 0-4 /hpf (0-4) Urine Hyaline Casts (Auto) 0 /lpf (0-5) Urine Epithelial Cells (Auto) >30 /lpf (0-5) Urine Bacteria (Auto) NEG (NEG) Urine Test NEG (NEG) Medications Administered Medications (Trade) Dose Ordered Sig/Zohra Route Start Time Stop Time Status Last Admin Dose Admin Sodium Chloride 1,000 ml @ 999 mls/hr Q1H1M STAT IV 05/09/17 20:34 05/09/17 21:34 DC 05/09/17 21:03 999 MLS/HR Acetaminophen (Tylenol Tab) 500 mg NOW STAT PO 05/09/17 20:34 05/09/17 20:36 DC 05/09/17 21:27 500 MG Ketorolac Tromethamine (Toradol Inj) 15 mg NOW STAT IV 05/09/17 22:35 05/09/17 22:36 DC 05/09/17 22:49 15 MG Medical Decision Patient was seen and evaluated as above. She presents to us today with body aches, vomiting, fever and diarrhea. She is currently well on exam. She is nontoxic in appearance. She is otherwise healthy. IV access was established, and the above workup was performed. Chest x-ray was negative. Strep test negative. Urine reveals 3+ blood, however this could be residual from the IUD placement. CBC reveals no concern leukocytosis or anemia. There is however neutrophil count elevation at 8.30. Metabolic panel reveals no evidence of kidney or liver failure. Electrolytes are well. Influenza negative. She was given 1 L of normal saline here, Tylenol, as well as Toradol. She was feeling much better. She rated her overall body aches is a 3/10 rather than her 8/10 on presentation. She is to follow-up with her family doctor, as well as [employer] for recheck of the IUD next week as scheduled. She was educated upon management , educated upon worrisome symptoms which to return, had questions answered prior to discharge, and was discharged home in good condition. I suspect she is likely experiencing a transient viral illness which should pass. In evaluation treatment this patient the following differential diagnoses were entertained: Sepsis, pneumonia, viral URI, flu, infected IUD, among others. Impression Primary Impression: Influenza-like symptoms Departure Information Dispostion Home / Self-Care Condition GOOD Referrals No Doctor, Assigned (PCP) Patient Instructions My [facility] Additional Instructions You have been treated in the Emergency Department for flu like symptoms. Rest. Drink plenty of fluids. For pain control, you can use the following edna-ege-nieulwp medicines (if >12 yo): - Regular strength (325mg/tab) Tylenol (acetaminophen) 2 tabs every 4-6 hours as needed. Do not exceed 12 tablets in a 24 hour period. Avoid taking more than 3 grams (3000 mg) of Tylenol per day. This includes any other sources of acetaminophen you may take on a regular basis. - Regular strength (200 mg/tab) Advil (ibuprofen) 1-2 tabs every 4-6 hours as needed. Do not exceed a dose of 3200 mg per day. You should schedule a follow-up appointment in 2-3 days with your Primary Care Provider for further evaluation and treatment of your illness. Return to the Emergency Department if your current symptoms worsen despite treatment course outlined above, or if you develop any new/concerning symptoms.
[2017-05-09 23:19] VITALS: BP 111/51; PULSE 82; TEMP 38.1; O2SAT 97
== END 2017-05-09 23:25 | disposition home or self-care (01) ==
LOC: C.EDB 19:45 → C.EDA 23:25
DX: J11.1 Influenza due to unidentified influenza virus with other respiratory manifestations (principal); Z98.890 Other specified postprocedural states; Z80.9 Family history of malignant neoplasm, unspecified; Z83.3 Family history of diabetes mellitus; Z82.49 Family history of ischemic heart disease and other diseases of the circulatory system

== ENCOUNTER 2020-07-25 12:38 | Inpatient (IN) ==
[2020-07-25] MEDS ORDERED: miSOPROStoL 200 MCG TAB PV ONE (17:00)
[2020-07-25] MEDS ORDERED: LACTATED RINGER'S 1,000 ML IV PRN (17:00)
[2020-07-25] MEDS ORDERED: OXYTOCIN 30 UNITS/500 ML BAG IV PRN (17:00)
[2020-07-25 17:35] LABS: Hematocrit (blood only) 37.3 % (37-47); Mean Corpuscular Hemoglobin 30.5 pg (25-34); Mean Corpuscular Hgb Conc 34.9 g/dL (32-36); Mean Corpuscular Volume 87.6 fL (80-100); Mean Platelet Volume 9.4 fL (7.4-10.4); Platelet Count 232 K/uL (130-400); RDW Coefficient of Variation 13.3 % (11.5-14.5); RDW Standard Deviation 42.5 fL (36.4-46.3); Red Blood Count 4.26 M/uL (4.2-5.4); White Blood Count 8.51 K/uL (4.8-10.8)
[2020-07-25] MEDS ORDERED: ALBUTEROL HFA 8 GM INHALER INH PRN (17:36)
--- NOTE | 2020-07-25 17:36 | History & Physical Report ---
Date of Service July 25, 2020 Assessment & Plan (1) demise: (2) IUFD at less than 20 weeks of gestation: 24-year-old -0-1-2 at 14+ weeks by last period, And 13.4 wks by ultrasound with no heart rate. Here for induction of labor Cytotec. Vital signs stable afebrile Mild cold/sinusitis symptoms Cervix closed and thick, no signs of symptoms of spontaneous . Discussed the process with Cytotec and what to expect. Discussed routine blood work and urine testing She declined cytogenetic testing All questions were answered. Admission and Anticipated Discharge Date Admission Date: July 25, 2020 History of Present Illness Primary Care Provider: Maranda Mackey PA-C Patient is a 24-year-old -0-1-2 at 14 wks by LMP She was in office on 07/21 for NOB visit US showed 13.4 wks IUP with no FHR She was scheduled for induction of labor for demise in second trimester for today. Patient has no OB complaints. Patient denies cramping, pelvic pain, vaginal bleeding or spotting. Patient has had stuffy nose and nasal discharge with mild cough for the last few days. She denies fever, chills, nausea, vomiting nor sore throat. She denies any history of contact with COVID-19 patient. She has been home with her kids only. Her has been complicated by 1) Depression/ anxiety: was on Medical Marijuana and Lexapro 2) Smoker: tobacco 3) Asthma Allergies Allergy/AdvReac Type Severity Reaction Status Date / Time bee venom protein (honey bee) Allergy Severe ANAPHYLAXIS Verified 11/17/19 17:06 Home Medications Medication Instructions Recorded Confirmed Type epinephrine [EpiPen] 0.3 mg IM UD PRN 10/19/18 11/17/19 History amitriptyline 5 mg PO HS 11/17/19 11/17/19 History escitalopram oxalate 10 mg PO DAILY 11/17/19 11/17/19 History pediatric multivitamin no.49 1 tab PO DAILY 11/17/19 11/17/19 History [Maurice Mueller] sumatriptan succinate 50 mg PO DIRECTED PRN 11/17/19 11/17/19 History Patient History Medical History (Updated 07/25/20 @ 17:34 by Ji Lemon MD) No significant active problems Family History Grandfather (Maternal) Myocardial infarction Social History Smoking Status: Current every day smoker Tobacco Type: Cigarettes Feels Safe at Home: Yes OB History 2 FT 's in 2016 and 2017 Early [employer] History No h/o STD's Review of Systems All systems reviewed & are unremarkable except as noted in HPI & below Physical Exam Constitutional: WD/WN, vitals as above well developed NAD, comfortably speaking Gastrointestinal (Abdomen): normal bowel sounds, soft, nontender, no hepatosplenomegaly Genitourinary: normal external appearance SSE: Vagina/ cervix clean, no d/c no blood Cultures taken Bed side US: Single IUP, BPD 13.4 wks, no FHR, placenta fundal/ anterior Results & Data ([facility]) Vital Signs (Past 12 Hours) Vital Signs Temp Pulse Resp BP 07/25/20 16:46 36.8 C 86 16 106/65
[2020-07-25] MEDS ORDERED: BUTORPHANOL TARTRATE 1 MG/ML VIAL IV PRN (17:38)
[2020-07-25] MEDS ORDERED: ONDANSETRON INJ 2 MG/ML 2 ML VIAL IV PRN (17:48)
[2020-07-25 17:56] LABS: Appearance Urine Clear (Clear); Bilirubin Urine Negative (Negative); Blood Urine Negative (Negative); Color Urine Dark Yellow; Glucose Urine UA Negative (Negative); Ketones Urine Trace (Negative); Leukocyte Esterase Urine Negative (Negative); Nitrite Urine Negative (Negative); Protein Urine Negative (Negative); Specific Gravity Urine 1.028 (1.000-1.030); Urobilinogen Urine Negative (Negative)
[2020-07-25 18:00] LABS: Albumin Globulin Ratio 0.9 (0.9-2); Albumin Level 3.2 gm/dl (3.4-5.0); Alkaline Phosphatase 64 U/L (45-117); Aspartate Aminotransferase 14 U/L (15-37); BUN Creatinine Ratio 9.6 (10-20); Blood Urea Nitrogen 6 mg/dl (7-18); Calcium 8.7 mg/dl (8.5-10.1); Carbon Dioxide 25 mmol/L (21-32); Chloride 107 mmol/L (98-107); Globulin 3.7 gm/dl (2.5-4.0); Glucose 90 mg/dl (70-99); Potassium 3.5 mmol/L (3.5-5.1); Sodium 138 mmol/L (136-145); Total Protein 6.9 gm/dl (6.4-8.2)
--- NOTE | 2020-07-25 18:03 | Obstetrical Progress Note ---
Date of Service July 25, 2020 Assessment & Plan Admission and Anticipated Discharge Date Admission Date: July 25, 2020 Subjective Patient states she is starving, wants to eat before IOL Plan for regular dinner and start Cytotec IOL 1 hour after ( intrabuccal) Results & Data ([facility]) Vital Signs (Past 12 Hours) Vital Signs Temp Pulse Resp BP 07/25/20 16:46 36.8 C 86 16 106/65
[2020-07-25 18:09] LABS: Alanine Aminotransferase 19 U/L (12-78); Bilirubin,Total 0.2 mg/dl (0.2-1); Thyroid Stimulating Hormone 0.501 uIu/ml (0.300-4.500)
[2020-07-25 18:14] LABS: Rubella IgG Antibody Immune (Immune)
[2020-07-25 18:15] LABS: Hepatitis B Surf Ag Rflx Conf Neg (Neg)
--- NOTE | 2020-07-25 18:39 | Obstetrical Progress Note ---
Date of Service July 25, 2020 Assessment & Plan Admission and Anticipated Discharge Date Admission Date: July 25, 2020 Subjective Patient is reevaluated Lab Results 07/25/20 07/25/20 07/25/20 Range/Units 17:15 17:15 17:15 WBC 8.51 (4.8-10.8) K/uL RBC 4.26 (4.2-5.4) M/uL Hgb 13.0 (12.0-16.0) g/dL Hct 37.3 (37-47) % MCV 87.6 (80-100) fL MCH 30.5 (25-34) pg MCHC 34.9 (32-36) g/dL RDW Std Deviation 42.5 (36.4-46.3) fL RDW Coeff of Travis 13.3 (11.5-14.5) % Plt Count 232 (130-400) K/uL MPV 9.4 (7.4-10.4) fL Sodium 138 (136-145) mmol/L Potassium 3.5 (3.5-5.1) mmol/L Chloride 107 (98-107) mmol/L Carbon Dioxide 25 (21-32) mmol/L Anion Gap 6.0 (3-11) BUN 6 L (7-18) mg/dl Creatinine 0.61 (0.6-1.2) mg/dl Est Cr Clr Drug Dosing Not Reportable Est GFR ( Amer) 146.0 Est GFR (Non-Af Amer) 126.0 BUN/Creatinine Ratio 9.6 L (10-20) Glucose 90 (70-99) mg/dl Calcium 8.7 (8.5-10.1) mg/dl Total Bilirubin 0.2 (0.2-1) mg/dl AST 14 L (15-37) U/L ALT 19 (12-78) U/L Alkaline Phosphatase 64 (45-117) U/L Total Protein 6.9 (6.4-8.2) gm/dl Albumin 3.2 L (3.4-5.0) gm/dl Globulin 3.7 (2.5-4.0) gm/dl Albumin/Globulin Ratio 0.9 (0.9-2) TSH 0.501 (0.300-4.500) uIu/ml Urine Color Urine Appearance (Clear) Urine pH (4.5-7.5) Ur Specific [place] (1.000-1.030) Urine Protein (Negative) Urine Glucose (UA) (Negative) Urine Ketones (Negative) Urine Blood (Negative) Urine Nitrite (Negative) Urine Bilirubin (Negative) Urine Urobilinogen (Negative) Ur Leukocyte Esterase (Negative) COVID-19 Eval Order Hep Bs Antigen Neg (Neg) Rubella IgG Antibody Immune (Immune) SARS-CoV-2, RNA, NAAT (NEGATIVE) 07/25/20 07/25/20 07/25/20 Range/Units 17:30 17:40 17:40 WBC (4.8-10.8) K/uL RBC (4.2-5.4) M/uL Hgb (12.0-16.0) g/dL Hct (37-47) % MCV (80-100) fL MCH (25-34) pg MCHC (32-36) g/dL RDW Std Deviation (36.4-46.3) fL RDW Coeff of [place] (11.5-14.5) % Plt Count (130-400) K/uL MPV (7.4-10.4) fL Sodium (136-145) mmol/L Potassium (3.5-5.1) mmol/L Chloride (98-107) mmol/L Carbon Dioxide (21-32) mmol/L Anion Gap (3-11) BUN (7-18) mg/dl Creatinine (0.6-1.2) mg/dl Est Cr Clr Drug Dosing Est GFR ( Amer) Est GFR (Non-Af Amer) BUN/Creatinine Ratio (10-20) Glucose (70-99) mg/dl Calcium (8.5-10.1) mg/dl Total Bilirubin (0.2-1) mg/dl AST (15-37) U/L ALT (12-78) U/L Alkaline Phosphatase (45-117) U/L Total Protein (6.4-8.2) gm/dl Albumin (3.4-5.0) gm/dl Globulin (2.5-4.0) gm/dl Albumin/Globulin Ratio (0.9-2) TSH (0.300-4.500) uIu/ml Urine Color Dark Yellow Urine Appearance Clear (Clear) Urine pH 6.0 (4.5-7.5) Ur Specific [place] 1.028 (1.000-1.030) Urine Protein Negative (Negative) Urine Glucose (UA) Negative (Negative) Urine Ketones Trace H (Negative) Urine Blood Negative (Negative) Urine Nitrite Negative (Negative) Urine Bilirubin Negative (Negative) Urine Urobilinogen Negative (Negative) Ur Leukocyte Esterase Negative (Negative) COVID[facility]19 [facility]s Antigen (Neg) Rubella IgG Antibody (Immune) SARS-CoV-2, RNA, NAAT POSITIVE A* (NEGATIVE) Aware of + COVID 9 results Denies CP/ SOB/ Difficulty with breathing O2 sat 99-100% RA She is awating for her dinner Will transfer her to negative pressure room and then start IOL All questions were answered. Results & Data ([facility]) Vital Signs (Past 12 Hours) Vital Signs Temp Pulse Resp BP Pulse Ox 07/25/20 18:30 89 98 07/25/20 18:29 107 H 92 07/25/20 18:25 87 100 07/25/20 16:46 36.8 C 86 16 106/65
[2020-07-25 18:43] LABS: Hepatitis C IgG 13Yrs+Old_Rflx Neg (Neg)
[2020-07-25 18:48] LABS: Amphetamines+Metham, Urine Pos (Neg); Barbiturates, Urine Neg (Neg); Benzodiazepine, Urine Neg (Neg); Cocaine, Urine Neg (Neg); MDMA (Ecstacy), Urine Pos (Neg); Methadone, Urine Neg (Neg); Opiate, Urine Neg (Neg); Phencyclidine, Urine Neg (Neg)
[2020-07-25] MEDS: miSOPROStoL 200 MCG TAB SL SCH (20:07)
[2020-07-25] MEDS ORDERED: AMITRIPTYLINE HCL 10 MG TAB PO SCH (21:00)
[2020-07-26] MEDS ORDERED: miSOPROStoL 200 MCG TAB PV ONE
[2020-07-26] MEDS ORDERED: diphenhydrAMINE Capsule 25 MG CAP PO ONE (00:16)
[2020-07-26] MEDS ORDERED: ONDANSETRON 4 MG OD TAB PO PRN ×2 (00:16→10:53)
[2020-07-26] MEDS ORDERED: oxyCODONE/ACETAMINOPHEN 5mg/325mg TAB PO PRN (00:17)
--- NOTE | 2020-07-26 00:22 | Obstetrical Progress Note ---
Date of Service July 26, 2020 Assessment & Plan Admission and Anticipated Discharge Date Admission Date: July 25, 2020 Subjective Patient is reevaluated She c/o IV site pain since it was started They ( IV team ) tried from 7 different sites and finally was able to put one on left antecubutal area. There is no swelling nor erythema there IV was H/L, no fluids running. She stil has pain and wants it out. Discussed IV site needed in the case of medication, IV Fluids use and blood transfusion if she would bleed. Discussed blood loss may be quick and a lot after delivery of fetus and placenta. She still wants IV site out. She denies ctxs/ cramping/ VB She did not take her Elavil. Placed 400 mcg of Vagina cytotec ( cervix is closed and thick) no blood Will give her a relief from IV site and ry another site with signs of labor She desires meds given ans oral and IM All questions were answered. Results & Data ([facility]) Vital Signs (Past 12 Hours) Vital Signs Temp Pulse Resp BP Pulse Ox 07/26/20 00:16 86 98 07/26/20 00:11 80 99 07/26/20 00:06 84 100 07/26/20 00:01 83 100 07/25/20 23:56 78 98 07/25/20 23:51 78 97 07/25/20 23:46 82 98 07/25/20 23:41 81 97 07/25/20 23:36 77 98 07/25/20 23:31 79 97 07/25/20 23:26 79 97 07/25/20 23:25 36.7 C 70 16 93/60 L 98 07/25/20 23:21 77 98 07/25/20 23:16 78 100 07/25/20 23:11 79 98 07/25/20 23:06 79 97 07/25/20 23:05 81 93 07/25/20 23:01 77 98 07/25/20 22:56 77 98 07/25/20 22:51 81 96 07/25/20 22:46 82 97 07/25/20 22:41 81 98 07/25/20 22:36 77 97 07/25/20 22:31 82 96 07/25/20 22:26 83 96 07/25/20 22:21 77 97 03/22/21 22:16 80 97 0322/21 22:11 80 97 0322/21 22:06 82 97 0322/21 22:01 83 97 0322/21 21:56 77 100 0322/21 21:51 83 97 0322/21 21:46 81 98 0322/21 21:41 81 98 0322/21 21:36 76 100 0322/21 21:32 78 92 0322/21 21:31 80 98 0322/21 21:26 98 H 98 0322/21 21:21 87 98 0322/21 21:16 91 H 100 0322/21 21:11 85 97 0322/21 21:06 87 97 0322/21 21:01 89 97 0322/21 20:56 87 97 0322/21 20:51 86 98 22/21 20:46 86 100 0322/21 20:41 87 100 0322/21 20:36 89 100 0322/21 20:31 89 98 22/21 20:26 90 98 0322/21 20:21 90 98 0322/21 20:16 88 99 0322/21 20:11 90 98 22/21 20:06 94 H 97 22/21 20:00 36.9 C 86 16 92/58 L 96 22/21 18:40 102 H 100 22/21 18:35 92 H 91 0322/21 18:30 89 98 0322/21 18:29 107 H 92 22/21 18:25 87 100 22/21 17:00 36.7 C 18 22/21 16:46 36.8 C 86 16 106/65
[2020-07-26] MEDS: miSOPROStoL 200 MCG TAB SL SCH ×3 (00:27→08:08)
[2020-07-26] MEDS: NICOTINE 7 MG/24 HR TDSY TD SCH ×2 (00:29→12:58)
[2020-07-26] MEDS ORDERED: MEPERIDINE HCL 25 MG/ML CARP/VIAL IM PRN (00:56)
[2020-07-26] MEDS: miSOPROStoL 200 MCG TAB PO SCH ×2 (04:22→08:36)
[2020-07-26 06:17] LABS: Estimated Average Glucose 105 mg/dl; Hemoglobin A1C 5.3 % (4.5-5.6)
--- NOTE | 2020-07-26 07:43 | Obstetrical Progress Note ---
Date of Service July 26, 2020 Assessment & Plan Admission and Anticipated Discharge Date Admission Date: July 25, 2020 Subjective Patient received 3 doses of Cytotec, no signs of labor I spoke with hospitalist for COVID 19 + results, possible monoclonal antibodies He referred me to Pharmacy. I called pharmacy and they said she is not meeting criteria for it. Results & Data ([facility]) Vital Signs (Past 12 Hours) Vital Signs Temp Pulse Pulse Resp BP BP Pulse Ox 07/26/20 07:36 76 96 07/26/20 07:31 73 97 07/26/20 07:26 76 97 07/26/20 07:25 36.8 C 76 16 94/58 L 07/26/20 07:21 78 98 07/26/20 07:16 74 96 07/26/20 07:11 80 97 07/26/20 07:06 78 96 07/26/20 07:01 81 96 07/26/20 06:56 89 98 07/26/20 06:51 75 97 07/26/20 06:46 76 96 07/26/20 06:41 76 96 07/26/20 06:36 71 96 07/26/20 06:31 74 96 07/26/20 06:26 74 96 07/26/20 06:21 83 99 07/26/20 06:16 83 98 07/26/20 06:15 92 H 93 07/26/20 06:11 79 96 07/26/20 06:06 80 95 07/26/20 06:01 79 95 07/26/20 05:56 79 95 07/26/20 05:51 78 95 07/26/20 05:46 78 96 07/26/20 05:41 84 97 07/26/20 05:36 79 96 07/26/20 05:31 82 96 07/26/20 05:26 80 97 07/26/20 05:21 74 99 07/26/20 05:16 73 95 07/26/20 05:11 76 96 07/26/20 05:06 77 96 07/26/20 05:01 77 96 07/26/20 04:56 78 96 07/26/20 04:51 76 96 07/26/20 04:46 74 96 07/26/20 04:41 75 96 07/26/20 04:36 74 96 07/26/20 04:31 70 96 07/26/20 04:26 78 97 07/26/20 04:21 36.7 C 72 16 93/60 L 96 07/26/20 04:16 76 97 07/26/20 04:11 76 96 07/26/20 04:06 79 96 07/26/20 04:01 78 97 07/26/20 03:56 80 96 07/26/20 03:51 78 96 07/26/20 03:46 76 96 07/26/20 03:41 79 96 07/26/20 03:36 78 96 07/26/20 03:31 74 97 07/26/20 03:26 78 96 07/26/20 03:21 80 96 07/26/20 03:16 83 96 07/26/20 03:11 91 H 96 07/26/20 03:06 90 96 07/26/20 03:01 87 96 07/26/20 02:56 84 96 07/26/20 02:51 83 96 07/26/20 02:46 79 96 07/26/20 02:41 77 96 07/26/20 02:36 81 96 07/26/20 02:31 80 96 07/26/20 02:26 75 96 07/26/20 02:21 75 96 07/26/20 02:16 76 96 07/26/20 02:11 77 96 07/26/20 02:06 72 96 07/26/20 02:01 70 96 07/26/20 01:56 70 94 07/26/20 01:51 78 97 07/26/20 01:46 77 98 07/26/20 01:41 74 97 07/26/20 01:36 80 97 07/26/20 01:31 74 98 07/26/20 01:26 78 98 07/26/20 01:21 79 100 07/26/20 01:16 74 98 07/26/20 01:11 73 97 07/26/20 01:06 78 97 07/26/20 01:01 74 98 07/26/20 00:56 75 98 07/26/20 00:51 72 97 07/26/20 00:46 77 97 07/26/20 00:41 86 96 07/26/20 00:36 83 97 07/26/20 00:31 85 97 03/23/21 00:26 101 H 97 03/23/21 00:21 80 97 03/23/21 00:16 86 98 03/23/21 00:11 80 99 03/23/21 00:06 84 100 03/23/21 00:01 83 100 0322/21 23:56 78 98 03/22/21 23:51 78 97 0322/21 23:46 82 98 0322/21 23:41 81 97 0322/21 23:36 77 98 0322/21 23:31 79 97 0322/21 23:26 79 97 0322/21 23:25 36.7 C 70 16 93/60 L 98 0322/21 23:21 77 98 0322/21 23:16 78 100 0322/21 23:11 79 98 0322/21 23:06 79 97 0322/21 23:05 81 93 0322/21 23:01 77 98 0322/21 22:56 77 98 0322/21 22:51 81 96 0322/21 22:46 82 97 0322/21 22:41 81 98 0322/21 22:36 77 97 0322/21 22:31 82 96 0322/21 22:26 83 96 0322/21 22:21 77 97 0322/21 22:16 80 97 0322/21 22:11 80 97 0322/21 22:06 82 97 0322/21 22:01 83 97 0322/21 21:56 77 100 0322/21 21:51 83 97 0322/21 21:46 81 98 0322/21 21:41 81 98 0322/21 21:36 76 100 0322/21 21:32 78 92 03/22/21 21:31 80 98 0322/21 21:26 98 H 98 0322/21 21:21 87 98 0322/21 21:16 91 H 100 0322/21 21:11 85 97 03/22/21 21:06 87 97 03/22/21 21:01 89 97 03/22/21 20:56 87 97 03/22/21 20:51 86 98 03/22/21 20:46 86 100 0322/21 20:41 87 100 03/22/21 20:36 89 100 03/22/21 20:31 89 98 07/25/20 20:26 90 98 07/25/20 20:21 90 98 07/25/20 20:16 88 99 07/25/20 20:11 90 98 07/25/20 20:06 94 H 97 07/25/20 20:00 36.9 C 86 16 92/58 L 96
[2020-07-26] MEDS ORDERED: ESCITALOPRAM OXALATE 20 MG TAB PO SCH (09:00)
[2020-07-26] MEDS ORDERED: OXYTOCIN 10 UNITS/ML VIAL ONE (09:42)
[2020-07-26] MEDS ORDERED: OXYTOCIN 10 UNITS/ML VIAL IM ONE ×2 (09:44→10:04)
[2020-07-26] MEDS ORDERED: bisacodyL 10 MG SUPP PR PRN (10:04)
[2020-07-26] MEDS ORDERED: DIPHTHERIA/TETANUS/PERTUSSIS 0.5 ML SYR/VIAL IM ONE (10:04)
[2020-07-26] MEDS ORDERED: HYDROCORTISONE ACETATE 25 MG SUPP PR PRN (10:04)
[2020-07-26] MEDS ORDERED: ACETAMINOPHEN 325 MG TAB PO PRN (10:04)
[2020-07-26] MEDS ORDERED: OXYTOCIN 30 UNITS/500 ML BAG IV PRN (10:04)
--- NOTE | 2020-07-26 10:07 | Delivery Summary ---
Vaginal Delivery Summary Date of Service July 26, 2020 Vaginal Delivery Summary Procedure note Called to see patient who was bleeding and passed tissue spontaneously. Exam was done with minimal bleeding and no lacerations or tears noted. Fetus and intact placenta are delivered intact. Fetus appears to be male with no visible gross malformations noted. No active bleeding or tears. Pitocin 10 units IM given. Patient stable and plans to be discharged later today.
[2020-07-26] MEDS ORDERED: ONDANSETRON 4 MG OD TAB ONE (10:55)
[2020-07-26] MEDS: IBUPROFEN 600 MG TAB PO PRN ×2 (11:16→15:03)
[2020-07-26] MEDS ORDERED: DOCUSATE SODIUM 100 MG CAP PO SCH (21:00)
[2020-07-27] MEDS ORDERED: FERROUS SULFATE 325 MG TAB PO SCH (08:00)
[2020-07-27] MEDS ORDERED: PRENATAL VITAMIN 1 TAB PO SCH (08:00)
[2020-07-27] MEDS ORDERED: bisacodyL 5 MG TABEC PO SCH (20:00)
[2020-07-28 15:59] LABS: Amphetamine Urine, Confirm 3460 ng/mL (<250); MDA negative; MDEA negative; MDMA (Ecstasy) Urine, Confirm negative; Marijuana Quant, GCMS Urine >5000 ng/mL (<5); Methamphetamine, Ur Confirm >15000 ng/mL (<250)
[2020-07-28 19:53] LABS: Chlamydia Trach RNA NOT DETECTED (NOT DETECTED); GC (Neis gonorrhoeae) RNA NOT DETECTED (NOT DETECTED); Trichomonas vaginalis RNA NOT DETECTED (NOT DETECTED)
== END 2020-07-26 15:45 | disposition home or self-care (01) | DRG 805 ==
LOC: 4S1 16:36 → 4W 18:54

== ENCOUNTER 2022-01-29 02:39 | Inpatient (IN) ==
[2022-01-29] MEDS ORDERED: OXYTOCIN 30 UNITS/500 ML BAG IV PRN (03:03)
[2022-01-29] MEDS ORDERED: LIDOCAINE 1% LOCAL 20 ML VIAL INFIL PRN (03:03)
[2022-01-29] MEDS ORDERED: LACTATED RINGER'S 1,000 ML IV PRN (03:03)
[2022-01-29] MEDS ORDERED: PENICILLIN G POTASSIUM 6 MU in DEXTROSE 5% 250 ML IV STA (03:16)
[2022-01-29] MEDS ORDERED: OXYTOCIN 30 UNITS/500ML NSS ONE (03:19)
[2022-01-29 03:41] LABS: Hematocrit (blood only) 40.7 % (34.1-44.9); Hemoglobin 14.1 g/dl (12.0-16.0); Mean Corpuscular Hemoglobin 30.7 pg (25.0-34.0); Mean Corpuscular Hgb Conc 34.6 g/dL (32.0-36.0); Mean Corpuscular Volume 88.7 fL (80.0-100.0); Mean Platelet Volume 9.9 fL (9.4-12.3); Platelet Count 245 K/uL (130-400); RDW Coefficient of Variation 13.6 % (11.5-14.5); RDW Standard Deviation 44.3 fL (36.4-46.3); Red Blood Count 4.59 M/uL (3.93-5.22); White Blood Count 15.86 K/ul (4.8-10.8)
[2022-01-29] MEDS ORDERED: ceFAZolin 2000MG 2,000 MG/15 ML SYR IV ONE (03:45)
[2022-01-29] MEDS ORDERED: MoRPHine SULFATE PF 1 MG/ML 10 ML AMP/VIAL ONE (03:51)
[2022-01-29] MEDS ORDERED: fentaNYL citrate 100 MCG/2 ML VIAL ONE (03:51)
[2022-01-29] MEDS ORDERED: CITRIC ACID/SODIUM CITRATE 15 ML UDC ONE (03:54)
--- NOTE | 2022-01-29 03:55 | Anesthesiology Consultation ---
Date of Service January 29, 2022 Assessment & Plan (1) Encounter for pre-operative examination: Chart Review Chart Review: Acceptable Risk for Surgery and Patient NOT seen in Pre Admission Testing Consults Requested none History Surgery Operation Date: 01/29/22 04:00 Proposed Procedures p Section in LD - Poncho Fitzgerald MD Height/Weight Height: 5 ft 4 in Weight: 63.72 kg Allergies Allergy/AdvReac Type Severity Reaction Status Date / Time bee venom protein (honey bee) Allergy Severe ANAPHYLAXIS Verified 12/27/21 14:01 Medications Home Medications Medication Instructions Recorded Confirmed Last Taken epinephrine 0.3 mg/0.3 mL 0.3 mg IM UD PRN Allergic Reaction 10/19/18 01/29/22 Unknown injection, auto-injector (EpiPen) pediatric multivitamin no.49 1 tab PO DAILY 11/17/19 01/29/22 1 Day Ago (Flintstones Gummies chewable ~01/28/22 tablet) sumatriptan succinate 50 mg tablet 50 mg PO DIRECTED PRN Migraine 11/17/19 01/29/22 Unknown Headache Active Medications Generic Name Dose Route Start Last Admin Trade Name Freq PRN Reason Stop Dose Admin Lactated Ringer's 1,000 mls @ 125 mls/hr 01/29/22 03:03 01/29/22 03:23 Lr IV 01/31/22 03:02 999 mls/hr .Q8H PRN Administration L&D Protocol Protocol Past Medical History Medical History Anxiety and depression Asthma last attack 05/2020 Exercise / Class Metabolic Activity II 4-5 Yardwork/Stairs/Walk up hill Past Family History Family History Grandfather (Maternal) Myocardial infarction Past Surgical History Surgical History H/O knee surgery History of tonsillectomy and adenoidectomy Past Anesthesia History No Hx of Anesthesia Complications and No Family Hx of Anesthesia Complications History of PONV No Hx of PONV and No Hx of Motion Sickness Social History Smoking Status: Current every day smoker tobacco type: cigarettes Smoking cigarettes per day: 4 Hx Alcohol Use: No Hx Substance Use: No substance use type: marijuana Last Used Substance: Days (ago) Last Used Substance Other:: Over 1 month ago per patient's report Physical Exam Vital Signs Last Vital Signs Temp 36.5 C 01/29/22 03:17 Pulse 60 01/29/22 02:55 Resp 20 01/29/22 03:17 BP 120/73 01/29/22 02:55 Testing Laboratory Results 01/29/22 03:25
[2022-01-29] MEDS ORDERED: diphenhydrAMINE 50 MG/ML VIAL IV PRN ×2 (04:13→22:13)
[2022-01-29] MEDS ORDERED: NALOXONE HCL 0.4 MG/1 ML VIAL/CARP IV PRN (04:13)
[2022-01-29] MEDS ORDERED: NALOXONE HCL 1 MG in SODIUM CHLORIDE 0.9% 1000ML 1,000 ML IV PRN (04:13)
[2022-01-29] MEDS ORDERED: MoRPHine SULFATE 2 MG/ML CARP IV PRN (04:13)
[2022-01-29] MEDS ORDERED: NALBUPHINE HCL INJ 10 MG/ML AMP IV PRN (04:13)
[2022-01-29] MEDS ORDERED: ePHEDrine sulfate 50 MG/ML AMP IV PRN (04:13)
[2022-01-29] MEDS ORDERED: NALOXONE HCL 0.08 MG in SYRINGE 1.8 ML IV PRN (04:13)
[2022-01-29] MEDS ORDERED: LACTATED RINGER'S 500 ML IV PRN (04:13)
[2022-01-29] MEDS ORDERED: MoRPHine SULFATE PF 1 MG/ML 10 ML AMP/VIAL INT SPINAL ONE (04:13)
[2022-01-29] MEDS ORDERED: NO NARCOTICS OR SEDATIVES SCH (04:15)
[2022-01-29] MEDS ORDERED: DC INTRASPINAL MORPHINE SCH (04:15)
[2022-01-29] MEDS ORDERED: SODIUM CHLORIDE 0.9% 1000ML 1,000 ML IV SCH (04:15)
[2022-01-29] MEDS ORDERED: OXYTOCIN 10 UNITS/ML 10ML VIAL ONE (04:26)
[2022-01-29] MEDS ORDERED: PHENYLEPHRINE HCL 10 MG/ML VIAL ONE (04:26)
[2022-01-29] MEDS ORDERED: ONDANSETRON INJ 2 MG/ML 2 ML VIAL ONE (04:26)
[2022-01-29] MEDS ORDERED: ePHEDrine sulfate 50 MG/ML SYR ONE (04:26)
[2022-01-29] MEDS ORDERED: CITRIC ACID/SODIUM CITRATE 15 ML UDC PO ONE (05:03)
[2022-01-29] MEDS ORDERED: DIPHTHERIA/TETANUS/PERTUSSIS 0.5 ML SYR/VIAL IM ONE (05:33)
[2022-01-29] MEDS ORDERED: MAGNESIUM HYDROXIDE SUSP 30 ML UDC PO PRN (05:33)
[2022-01-29] MEDS ORDERED: BENZOCAINE 20% AER SPR 82.5 GM CAN EXT PRN (05:33)
[2022-01-29] MEDS ORDERED: HYDROCORTISONE ACETATE 25 MG SUPP PR PRN (05:33)
[2022-01-29] MEDS ORDERED: SENNA 8.6 MG TAB PO PRN (05:33)
--- NOTE | 2022-01-29 05:36 | Anesthesiology Progress Note ---
Date of Service January 29, 2022 Anesthesia Post Procedure Vital Signs Vital Signs: Temp Pulse Resp BP Pulse Ox 01/29/22 03:17 36.5 C 20 01/29/22 05:32 99 01/29/22 05:32 62 01/29/22 05:32 64 139/75 01/29/22 02:55 60 120/73 Transfer of Care Handoff Completed per policy Notes Mental Status: alert / awake / arousable Patient Amnestic to Procedure: No Nausea / Vomiting: adequately controlled Pain: adequately controlled Airway Patency, RR, SpO2: stable & adequate BP & HR: stable & adequate Hydration State: stable & adequate Neuraxial Anesthesia: was administered and sensory block is resolving Anesthetic Complications: no major complications apparent and Pt Satisfied with anesthetic care
--- NOTE | 2022-01-29 05:51 | Obstetrical Progress Note ---
Date of Service January 29, 2022 Assessment & Plan (1) IUGR (intrauterine growth restriction): Plan: Late Note Pt resented to labor and delivery at 9cm with bulging bag. Vaginal exam by nurse was suspicious for malpresentation' On arrival to L&d Bedside sono confirmed breech presentation pt was consented or c/sec (2) Breech presentation: Admission and Anticipated Discharge Date Admission Date: January 29, 2022 Results & Data ([facility]) Vital Signs (Past 12 Hours) Vital Signs Temp Pulse Resp BP Pulse Ox 01/29/22 03:17 36.5 C 20 01/29/22 05:47 63 100 01/29/22 05:42 67 135/81 99 01/29/22 05:37 64 99 01/29/22 05:32 99 01/29/22 05:32 62 01/29/22 05:32 64 139/75 01/29/22 02:55 60 120/73
[2022-01-29] MEDS: OXYTOCIN 20 UNITS in LACTATED RINGER'S 1,000 ML IV SCH ×2 (06:15→14:19)
[2022-01-29] MEDS ORDERED: PENICILLIN G POTASSIUM 3 MU in DEXTROSE 5% 100 ML IV PRN (06:16)
[2022-01-29 06:44] LABS: Base Excess Cord Arterial Bld -9.7 mEq/L (-9-1.8); Base Excess Cord Venous Blood -7.7 mEq/L (-7.7-1.9); CO2 Cord Arterial Blood 70 mmHg (39.1-73.5); Cord Venous Blood HCO3 22 mmol/L (18.4-26.8); Cord Venous Blood PCO2 59 mmHg (30.4-57.2); Cord Venous Blood PO2 21 mmHg (14.1-43.3); Cord Venous Blood pH 7.17 (7.20-7.44); HCO3 Cord Arterial Blood 21 mmol/L (19.7-28.5); O2 Saturation Cord Venous Bld < 60.0 % (<68); Oxygen Sat Cord Arterial Blood < 60.0 % (<60); PO2 Cord Arterial Blood 8 mmHg (4.1-31.7); pH Cord Arterial Blood 7.09 (7.1-7.38)
[2022-01-29 07:29] LABS: Amphetamines+Metham, Urine Neg (Neg); Barbiturates, Urine Neg (Neg); Benzodiazepine, Urine Neg (Neg); Cocaine, Urine Neg (Neg); MDMA (Ecstacy), Urine Pos (Neg); Methadone, Urine Neg (Neg); Opiate, Urine Neg (Neg); Phencyclidine, Urine Neg (Neg)
[2022-01-29] MEDS: KETOROLAC 30 MG/ML VIAL IV PRN ×3 (08:00→21:57)
[2022-01-29] MEDS: FERROUS SULFATE 325 MG TAB PO SCH (08:14)
[2022-01-29] MEDS: SIMETHICONE 80 MG CHEW PO SCH ×4 (08:14→20:08)
[2022-01-29] MEDS: PRENATAL VITAMIN 1 TAB PO SCH (08:14)
[2022-01-29] MEDS: DOCUSATE SODIUM 100 MG CAP PO SCH ×2 (08:14→20:08)
[2022-01-29] MEDS: ONDANSETRON INJ 2 MG/ML 2 ML VIAL IV PRN ×2 (10:30→22:18)
--- NOTE | 2022-01-29 13:01 | Operative Report (OR) ---
DATE OF PROCEDURE: 01/29/2022. INDICATION FOR SURGERY: This is a 26-year-old G5, P2 who presented to labor and delivery, fully dilated with bulging membranes at 37 weeks, ultrasound done at bedside showed breech presentation. Decision was therefore made to perform section. PREOPERATIVE DIAGNOSES: 1. at term. 2. Intrauterine growth restriction. 3. Breech presentation. POSTOPERATIVE DIAGNOSES: 1. at term. 2. Intrauterine growth restriction. 3. Breech presentation. SURGEON: Poncho Fitzgerald MD. SOFTWARE EDUCATOR: Jeni Drummond RN. PROCEDURE: Primary section. ANESTHESIA: Spinal. ATTENDING PHYSICIAN: Dr. Reece. DRAINS: None. ESTIMATED BLOOD LOSS: 500 mL INTRAVENOUS FLUIDS: 1500 mL URINE OUTPUT: 50 mL of clear urine at the end of the procedure. SPECIMEN: Placenta and cord gas. INTRAOPERATIVE COMPLICATIONS: None. PATIENT CONDITION: Stable. DISPOSITION: Postanesthesia care unit. ATTESTATION: I performed the entire procedure. FINDINGS: Normal female escutcheon. Double footling breech presentation of fetus. Uterus, tubes, and ovaries appeared grossly normal. The patient's weight and Apgars are in the pediatric record. There was meconium upon laparotomy as well as blood clots, which could represent early stages of the placenta abruption. DESCRIPTION OF PROCEDURE: The patient taken to the operating room where she was prepped and draped in usual normal sterile fashion in dorsal lithotomy position. Timeout was called. A Pfannenstiel incision was made with a scalpel and carried down to the fascia. Fascia was incised in the midline and extended laterally on both sides. Fascia was sharply dissected off the rectus abdominis muscle. Peritoneum was identified and entered sharply. An Jordan retractor was used for retraction. Vesicouterine peritoneum was sharply dissected off the lower segment of the uterus. A low transverse incision was made. was delivered using breech maneuvers without any difficulty. As stated in the findings, this was a double footling breech. Findings delivered without difficulty. Delayed cord clamp was performed and the was handed over to the pediatric team. There was meconium and what appeared to be blood clots, possibly early stages of placenta abruption. Placenta was manually removed and sent to pathology for pathological analysis. Uterus was exteriorized and cleared of all clots and debris. Uterus was closed in 2 layers using Vicryl stitch. There was good hemostasis of uterine closure. The vesicouterine peritoneum was reapproximated with plain suture. The uterus was returned into the abdominal cavity. Copious amount of irrigation was used to irrigate the abdomen. Once again, hemostasis was established. Peritoneum was identified and approximated using plain suture. A loose [id number] used to approximate the rectus abdominis muscle. Once again, hemostasis was obtained. The fascia was closed in a running fashion using Vicryl stitch. Subcutaneous space was irrigated and closed in layers using plain suture. Skin was closed with michelle. All instruments were removed from the abdomen including sponges, needles, and retractors and accounted for x2. The patient was then sent to recovery in stable condition. Job ID: [id number] [facility]
[2022-01-29] MEDS ORDERED: LACTATED RINGER'S 1,000 ML IV SCH (14:00)
[2022-01-29] MEDS ORDERED: CALCIUM CARBONATE 500 MG CHEWABLE TAB PO PRN ×2 (15:58→16:36)
[2022-01-29] MEDS ORDERED: ONDANSETRON INJ 2 MG/ML 2 ML VIAL IV PRN (22:13)
[2022-01-29] MEDS ORDERED: PROMETHAZINE HCL 25 MG in SODIUM CHLORIDE 0.9% 50 ML IV PRN (22:13)
[2022-01-29] MEDS ORDERED: diphenhydrAMINE Capsule 25 MG CAP PO PRN (22:13)
[2022-01-30 06:37] LABS: Basophils # (auto) 0.03 K/uL (0-0.2); Basophils % (auto) 0.3 %; Eosinophils # (auto) 0.03 K/uL (0-0.50); Eosinophils % (auto) 0.3 %; Hematocrit (blood only) 30.7 % (34.1-44.9); Hemoglobin 10.6 g/dl (12.0-16.0); Immature Granulocytes # (auto) 0.02 K/uL (0.00-0.02); Immature Granulocytes % (auto) 0.2 %; Lymphocytes % (auto) 14.4 %; Mean Corpuscular Hemoglobin 30.6 pg (25.0-34.0); Mean Corpuscular Hgb Conc 34.5 g/dL (32.0-36.0); Mean Corpuscular Volume 88.7 fL (80.0-100.0); Monocytes # (auto) 0.31 K/uL (0.24-0.82); Monocytes % (auto) 3.2 %; Neutrophils # (auto) 7.92 K/uL (1.4-6.5); Neutrophils % (auto) 81.6 %; Platelet Count 203 K/uL (130-400); RDW Coefficient of Variation 13.7 % (11.5-14.5); RDW Standard Deviation 44.4 fL (36.4-46.3); Red Blood Count 3.46 M/uL (3.93-5.22); White Blood Count 9.71 K/ul (4.8-10.8)
[2022-01-30] MEDS: DOCUSATE SODIUM 100 MG CAP PO SCH ×2 (08:04→21:20)
[2022-01-30] MEDS: FERROUS SULFATE 325 MG TAB PO SCH (08:04)
[2022-01-30] MEDS: SIMETHICONE 80 MG CHEW PO SCH ×4 (08:04→21:20)
[2022-01-30] MEDS: IBUPROFEN 600 MG TAB PO PRN ×4 (08:04→23:30)
[2022-01-30] MEDS: PRENATAL VITAMIN 1 TAB PO SCH (08:04)
--- NOTE | 2022-01-30 11:18 | Obstetrical Progress Note ---
Date of Service January 30, 2022 Subjective Ambulation: ambulating normally Voiding: no voiding problems Passing Gas:: Yes Diet Tolerance:: regular diet Feeding Type:: breast feeding Current Pain Level(1-10): 0 doing well Physical Exam Gastrointestinal (Abdomen) normal bowel sounds, soft, nontender, no hepatosplenomegaly Inspection/Auscultation: + abdominal surgical incision incision c/d/i Musculoskeletal Extremities: extremities normal to inspection neg peyton's Skin no rashes, warm and dry Neurologic patellar DTR's 2+ bilat, sensation intact Psychiatric A+Ox3, euthymic affect Results & Data ([facility]) Vital Signs (Past 12 Hours) Vital Signs Temp Pulse Pulse Pulse Resp BP BP 01/30/22 08:00 01/30/22 07:51 37.2 C 64 20 108/74 01/30/22 02:59 36.7 C 87 16 98/62 L 01/29/22 23:20 36.6 C 71 17 116/67 Pulse Ox O2 Del Method 01/30/22 08:00 Room Air 01/30/22 07:51 97 Room Air 01/30/22 02:59 96 Room Air 01/29/22 23:20 96 Room Air Laboratory Results 01/29/22 01/29/22 01/29/22 03:15 03:25 04:23 WBC 15.86 H RBC 4.59 Hgb 14.1 Hct 40.7 MCV 88.7 MCH 30.7 MCHC 34.6 RDW Std Deviation 44.3 RDW Coeff of Travis 13.6 Plt Count 245 MPV 9.9 Immature Gran % (Auto) Neut % (Auto) Lymph % (Auto) Wharton % (Auto) Eos % (Auto) Baso % (Auto) Neut # (Auto) Lymph # (Auto) Wharton # (Auto) Eos # (Auto) Baso # (Auto) Immature Gran # (Auto) Cord ABG pH 7.09 L Cord ABG pCO2 70 Cord ABG pO2 8 Cord ABG HCO3 21 Cord ABG Base Excess -9.7 L Cord ABG O2 Sat < 60.0 Cord VBG pH Cord VBG pCO2 Cord VBG pO2 Cord VBG HCO3 Cord VBG Base Excess Cord VBG O2 Sat Blood Gas Comments FLOREZ Urine Opiates Screen Ur Methadone, Qual Urine Barbiturates Ur Phencyclidine (PCP) U Amphetamin/Meth Scrn MDMA (Ecstasy) Screen U Benzodiazepines Scrn Ur Cocaine Metabolite U Marijuana (THC) Screen SARS-CoV-2, RNA, NAAT NEGATIVE 01/29/22 01/29/22 01/30/22 04:23 05:45 06:09 WBC 9.71 RBC 3.46 L Hgb 10.6 L D Hct 30.7 L MCV 88.7 MCH 30.6 MCHC 34.5 RDW Std Deviation 44.4 RDW Coeff of Travis 13.7 Plt Count 203 MPV 10.0 Immature Gran % (Auto) 0.2 Neut % (Auto) 81.6 Lymph % (Auto) 14.4 Wharton % (Auto) 3.2 Eos % (Auto) 0.3 Baso % (Auto) 0.3 Neut # (Auto) 7.92 H Lymph # (Auto) 1.40 Wharton # (Auto) 0.31 Eos # (Auto) 0.03 Baso # (Auto) 0.03 Immature Gran # (Auto) 0.02 Cord ABG pH Cord ABG pCO2 Cord ABG pO2 Cord ABG HCO3 Cord ABG Base Excess Cord ABG O2 Sat Cord VBG pH 7.17 L Cord VBG pCO2 59 H Cord VBG pO2 21 Cord VBG HCO3 22 Cord VBG Base Excess -7.7 Cord VBG O2 Sat < 60.0 Blood Gas Comments FLOREZ Urine Opiates Screen Neg Ur Methadone, Qual Neg Urine Barbiturates Neg Ur Phencyclidine (PCP) Neg U Amphetamin/Meth Scrn Neg MDMA (Ecstasy) Screen Pos H U Benzodiazepines Scrn Neg Ur Cocaine Metabolite Neg U Marijuana (THC) Screen Pos H SARS-CoV-2, RNA, NAAT
[2022-01-30] MEDS: oxyCODONE/ACETAMINOPHEN 5mg/325mg TAB PO PRN ×2 (17:55→23:30)
[2022-01-30] MEDS ORDERED: bisacodyL 5 MG TABEC PO SCH (20:00)
[2022-01-31] MEDS ORDERED: bisacodyL 10 MG SUPP PR PRN (05:33)
[2022-01-31 07:12] LABS: Hematocrit (blood only) 33.3 % (34.1-44.9); Hemoglobin 11.5 g/dl (12.0-16.0)
[2022-01-31] MEDS: DOCUSATE SODIUM 100 MG CAP PO SCH ×2 (07:55→19:36)
[2022-01-31] MEDS: IBUPROFEN 600 MG TAB PO PRN ×4 (07:55→21:20)
[2022-01-31] MEDS: SIMETHICONE 80 MG CHEW PO SCH ×4 (07:55→19:36)
[2022-01-31] MEDS: FERROUS SULFATE 325 MG TAB PO SCH (07:55)
[2022-01-31] MEDS: PRENATAL VITAMIN 1 TAB PO SCH (07:55)
--- NOTE | 2022-01-31 08:41 | Obstetrical Progress Note ---
Date of Service January 31, 2022 Assessment & Plan (1) delivery delivered: c/sec day #2 pt doing well No complaints + ecstasy and marijuana in urine CYS on consult Subjective Ambulation: ambulating normally Voiding: no voiding problems Passing Gas:: Yes Diet Tolerance:: clear liquids Lochia:: Small Feeding Type:: breast feeding Review of Systems All systems reviewed & are unremarkable except as noted in HPI & below Physical Exam Constitutional WD/WN, vitals as above well developed and well nourished Eyes PERRL, conjunctivae normal, anicteric sclerae ENMT external ear and nose normal, oropharynx normal Neck trachea midline, no thyromegaly Respiratory normal respiratory effort, lungs clear to auscultation Cardiovascular RRR, no murmur, no edema Chest (Breasts) normal inspection/palpation of breasts Gastrointestinal (Abdomen) normal bowel sounds, soft, nontender, no hepatosplenomegaly Musculoskeletal no cyanosis or clubbing, extremities motor strength 5/5 Skin no rashes, warm and dry + incision (Clean,dry and intact) Neurologic patellar DTR's 2+ bilat, sensation intact Psychiatric A+Ox3, euthymic affect Genitourinary normal external appearance Lymphatic no cervical or axillary lymphadenopathy Results & Data ([facility]) Vital Signs (Past 12 Hours) Vital Signs Temp Pulse Resp BP Pulse Ox O2 Del Method 01/31/22 07:50 37.2 C 79 18 121/75 95 Room Air 01/30/22 23:20 36.8 C 72 18 116/65 95 Room Air
[2022-01-31] MEDS: oxyCODONE/ACETAMINOPHEN 5mg/325mg TAB PO PRN (21:21)
--- NOTE | 2022-02-01 06:43 | Obstetrical Progress Note ---
Date of Service February 01, 2022 Assessment & Plan (1) delivery delivered: POD #2 pt doing well d/c home with instrcutions Subjective Ambulation: ambulating normally Voiding: no voiding problems Passing Gas:: Yes Diet Tolerance:: clear liquids Lochia:: Small Feeding Type:: breast feeding Review of Systems All systems reviewed & are unremarkable except as noted in HPI & below Physical Exam Constitutional WD/WN, vitals as above well developed and well nourished Eyes PERRL, conjunctivae normal, anicteric sclerae ENMT external ear and nose normal, oropharynx normal Neck trachea midline, no thyromegaly Respiratory normal respiratory effort, lungs clear to auscultation Cardiovascular RRR, no murmur, no edema Chest (Breasts) normal inspection/palpation of breasts Gastrointestinal (Abdomen) normal bowel sounds, soft, nontender, no hepatosplenomegaly Musculoskeletal no cyanosis or clubbing, extremities motor strength 5/5 Skin no rashes, warm and dry + incision (Clean,dry and intact) Neurologic patellar DTR's 2+ bilat, sensation intact Psychiatric A+Ox3, euthymic affect Genitourinary normal external appearance Lymphatic no cervical or axillary lymphadenopathy Results & Data ([facility]) Vital Signs (Past 12 Hours) Vital Signs Temp Pulse Resp BP Pulse Ox O2 Del Method 02/01/22 01:00 36.7 C 73 18 114/63 95 Room Air 01/31/22 19:30 36.7 C 77 18 133/80 96 Room Air
[2022-02-01] MEDS: IBUPROFEN 600 MG TAB PO PRN (06:45)
[2022-02-01] MEDS: SIMETHICONE 80 MG CHEW PO SCH (08:11)
[2022-02-01] MEDS: FERROUS SULFATE 325 MG TAB PO SCH (08:12)
[2022-02-01] MEDS: DOCUSATE SODIUM 100 MG CAP PO SCH (08:12)
[2022-02-01] MEDS: PRENATAL VITAMIN 1 TAB PO SCH (08:13)
[2022-02-02 15:51] LABS: MDA negative; MDEA negative; MDMA (Ecstasy) Urine, Confirm negative; Marijuana Quant, GCMS Urine 2443 ng/mL (<5)
== END 2022-02-01 12:50 | disposition home or self-care (01) | DRG 788 ==
LOC: 4S1 02:39 → 4E1 10:48

== ENCOUNTER 2023-01-11 05:40 | Inpatient (IN) ==
[2023-01-11] MEDS ORDERED: LACTATED RINGER'S 1,000 ML IV SCH ×2 (06:30→08:45)
[2023-01-11] MEDS ORDERED: CITRIC ACID/SODIUM CITRATE 15 ML UDC PO SCH (06:30)
[2023-01-11] MEDS ORDERED: ceFAZolin 2000MG 2,000 MG/15 ML SYR IV ONE (06:49)
[2023-01-11] MEDS ORDERED: fentaNYL citrate PF 100 MCG/2 ML VIAL ONE (07:03)
[2023-01-11] MEDS ORDERED: OXYTOCIN 10 UNITS/ML VIAL ONE (07:03)
[2023-01-11] MEDS ORDERED: PHENYLEPHRINE HCL 10 MG/ML VIAL ONE (07:03)
[2023-01-11] MEDS ORDERED: MoRPHine SULFATE PF 1 MG/ML 10 ML AMP/VIAL ONE (07:03)
[2023-01-11] MEDS ORDERED: KETOROLAC 30 MG/ML VIAL ONE (07:03)
[2023-01-11] MEDS ORDERED: ONDANSETRON INJ 2 MG/ML 2 ML VIAL ONE (07:03)
--- NOTE | 2023-01-11 07:04 | History & Physical Report ---
Date of Service January 11, 2023 Assessment & Plan (1) labor: Plan: Repeat with bilateral salpingectomy History of Present Illness Chief Complaint: onset of labor at 35.4 weeks Primary Care Provider: Maranda Mackey PA-C 27 F [id number] at 35.4 weeks with onset of labor starting at 2 AM this morning. She has had 2 prior vaginal deliveries followed by a . Currently she is planning a repeat and a tubal ligation as she does not want a TOLAC. I explained the risks of surgery to her and she is not willing to undergo labor. Allergies Allergy/AdvReac Type Severity Reaction Status Date / Time bee venom protein (honey bee) Allergy Severe ANAPHYLAXIS Verified 12/27/21 14:01 Home Medications Medication Instructions Recorded Confirmed Type epinephrine 0.3 mg/0.3 mL 0.3 mg IM UD PRN Allergic Reaction 10/19/18 01/11/23 History injection, auto-injector (EpiPen) pediatric multivitamin no.49 1 tab PO DAILY 11/17/19 01/11/23 History (Flintstones Gummies chewable tablet) ferrous sulfate 325 mg (65 mg 325 mg PO DAILY@08 #30 tabs 02/01/22 01/11/23 Rx iron) tablet,delayed release cyanocobalamin (B12)-cobamamide tab sublingual 01/11/23 History 5,000 mcg-100 mcg sublingual tablet (B-12 Plus) folic acid 0.8 mg capsule 0.8 mg PO DAILY 01/11/23 01/11/23 History Patient History Medical History Anxiety and depression Asthma last attack 05/2020 Surgical History H/O knee surgery History of tonsillectomy and adenoidectomy Family History Grandfather (Maternal) Myocardial infarction Social History Smoking Status: Current every day smoker Tobacco Type: Cigarettes Cigarettes Per Day: 5; Second Hand Exposure: No; Do You Dip or Chew Tobacco: No; Hx Alcohol Use: No Hx Substance Use: Yes Substance Use Type Other:: has medical marijuana card Preferred Language: Malagasy Communication Ability: Effective Analytical Research Chemist Required: No Beliefs That Will Affect Care: None marital status: Single Current Living Situation: Spouse and Family Other Information That Helps Us Care for You: No Feels Safe at Home: Yes Safety Concerns: Feels Safe At This Time Assistive Devices: Glasses OB History x2 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 History neg Review of Systems All systems reviewed & are unremarkable except as noted in HPI & below Physical Exam Constitutional: WD/WN, vitals as above Eyes: PERRL, conjunctivae normal, anicteric sclerae Respiratory: normal respiratory effort, lungs clear to auscultation Cardiovascular: RRR, no murmur, no edema Gastrointestinal (Abdomen): Inspection/Auscultation: abdomen normal to inspection Musculoskeletal: Extremities: extremities normal to inspection Skin: no rashes, warm and dry Neurologic: patellar DTR's 2+ bilat, sensation intact Psychiatric: A+Ox3, euthymic affect Genitourinary: Manual OB Exam: + cervical dilation 4 cm, + cervical effacement 100% and + station -1 OB Exam Monitor Tracing: + external FHT monitor used, + external uterine monitor used, + category I and + normal FHT variability Results & Data Vital Signs (Past 12 Hours) Vital Signs Temp Pulse Resp BP 01/11/23 05:53 36.9 C 81 18 108/63 01/11/23 05:51 81 108/63 Laboratory Results pending Monitoring External Monitor Cat 1
[2023-01-11 07:05] LABS: Basophils # (auto) 0.11 K/uL (0.00-0.20); Basophils % (auto) 0.6 %; Eosinophils # (auto) 0.08 K/uL (0.00-0.50); Eosinophils % (auto) 0.4 %; Hematocrit (blood only) 33.9 % (37.0-47.0); Hemoglobin 11.4 g/dl (12.0-16.0); Immature Granulocytes # (auto) 0.11 K/uL (0.01-0.20); Immature Granulocytes % (auto) 0.6 %; Lymphocytes # (auto) 1.98 K/uL (1.20-3.40); Lymphocytes % (auto) 9.9 %; Mean Corpuscular Hemoglobin 29.3 pg (25.0-34.0); Mean Corpuscular Hgb Conc 33.6 g/dL (32.0-36.0); Mean Corpuscular Volume 87.1 fL (80.0-100.0); Mean Platelet Volume 9.8 fL (9.4-12.4); Monocytes # (auto) 0.83 K/uL (0.11-0.59); Monocytes % (auto) 4.2 %; Neutrophils # (auto) 16.84 K/uL (1.40-6.50); Neutrophils % (auto) 84.3 %; Platelet Count 282 K/uL (130-400); RDW Coefficient of Variation 13.5 % (11.5-14.5); RDW Standard Deviation 42.5 fL (36.4-46.3); Red Blood Count 3.89 M/uL (4.20-5.40); White Blood Count 19.95 K/ul (4.8-10.8)
--- NOTE | 2023-01-11 07:10 | Anesthesiology Consultation ---
Date of Service January 11, 2023 Assessment & Plan (1) Encounter for pre-operative examination: Chart Review Chart Review: Acceptable Risk for Surgery and Patient NOT seen in Pre Admission Testing Consults Requested none History Surgery Operation Date: 01/11/23 07:30 Proposed Procedures p Section in LD - Elroy Barrios MD Height/Weight Height: 5 ft 4 in Weight: 63.957 kg Allergies Allergy/AdvReac Type Severity Reaction Status Date / Time bee venom protein (honey bee) Allergy Severe ANAPHYLAXIS Verified 12/27/21 14:01 Medications Home Medications Medication Instructions Recorded Confirmed Last Taken epinephrine 0.3 mg/0.3 mL 0.3 mg IM UD PRN Allergic Reaction 10/19/18 01/11/23 Unknown injection, auto-injector (EpiPen) pediatric multivitamin no.49 1 tab PO DAILY 11/17/19 01/11/23 01/10/23 (Flintstones Gummies chewable tablet) ferrous sulfate 325 mg (65 mg 325 mg PO DAILY@08 #30 tabs 02/01/22 01/11/23 01/10/23 iron) tablet,delayed release cyanocobalamin (B12)-cobamamide tab sublingual 01/11/23 01/10/23 5,000 mcg-100 mcg sublingual tablet (B-12 Plus) folic acid 0.8 mg capsule 0.8 mg PO DAILY 01/11/23 01/11/23 01/10/23 Active Medications Generic Name Dose Route Start Last Admin Trade Name Freq PRN Reason Stop Dose Admin Lactated Ringer's 1,000 mls @ 999 mls/hr 01/11/23 06:30 01/11/23 06:38 Lr IV 01/11/23 07:30 999 mls/hr .[id number] MARCK Administration Past Medical History Medical History Anxiety and depression Asthma last attack 05/2020 Past Family History Family History Grandfather (Maternal) Myocardial infarction Past Surgical History Surgical History H/O knee surgery History of tonsillectomy and adenoidectomy Social History Smoking Status: Current every day smoker tobacco type: cigarettes Smoking cigarettes per day: 5 Do You Dip or Chew Tobacco: No Hx Alcohol Use: No Hx Substance Use: Yes substance use type: marijuana Substance Use Type Other:: has medical marijuana card Physical Exam Vital Signs Last Vital Signs Temp 98.4 F 01/11/23 05:53 Pulse 81 01/11/23 05:53 Resp 18 01/11/23 05:53 BP 108/63 01/11/23 05:53 Testing Laboratory Results 01/11/23 06:39
[2023-01-11] MEDS ORDERED: PROMETHAZINE HCL 12.5 MG in SODIUM CHLORIDE 0.9% 50 ML IV PRN (08:03)
[2023-01-11] MEDS ORDERED: ACETAMINOPHEN 1,000 MG/100 ML VIAL IV PRN (08:03)
[2023-01-11] MEDS ORDERED: NALOXONE HCL 1 MG in SODIUM CHLORIDE 0.9% 1,000 ML IV PRN (08:03)
[2023-01-11] MEDS ORDERED: NALBUPHINE HCL INJ 10 MG/ML AMP IV PRN (08:03)
[2023-01-11] MEDS ORDERED: LACTATED RINGER'S 500 ML IV PRN (08:03)
[2023-01-11] MEDS ORDERED: ONDANSETRON INJ 2 MG/ML 2 ML VIAL IV PRN (08:03)
[2023-01-11] MEDS ORDERED: MoRPHine SULFATE PF 1 MG/ML 10 ML AMP/VIAL INT SPINAL ONE (08:03)
[2023-01-11] MEDS ORDERED: NALOXONE HCL 0.4 MG/1 ML VIAL/CARP IV PRN (08:03)
[2023-01-11] MEDS ORDERED: diphenhydrAMINE 50 MG/ML VIAL IV PRN (08:03)
[2023-01-11] MEDS ORDERED: ePHEDrine sulfate 50 MG/ML AMP IV PRN (08:03)
[2023-01-11] MEDS ORDERED: HYDROmorphone INJ 0.5 MG/0.5 ML SYR IV PRN (08:03)
[2023-01-11] MEDS ORDERED: NALOXONE HCL 0.08 MG in SYRINGE 1.8 ML IV PRN (08:03)
[2023-01-11] MEDS ORDERED: NO NARCOTICS OR SEDATIVES SCH (08:15)
[2023-01-11] MEDS ORDERED: DC INTRASPINAL MORPHINE SCH (08:15)
[2023-01-11] MEDS ORDERED: SODIUM CHLORIDE 0.9% 1,000 ML IV SCH (08:15)
[2023-01-11] MEDS ORDERED: MAGNESIUM HYDROXIDE SUSP 30 ML UDC PO PRN (08:40)
[2023-01-11] MEDS ORDERED: DIPHTHERIA/TETANUS/PERTUSSIS Vaccine (Tdap, Age 7+yrs) 0.5mL SYR/VL IM ONE (08:40)
[2023-01-11] MEDS ORDERED: HYDROCORTISONE ACETATE 25 MG SUPP PR PRN (08:40)
[2023-01-11] MEDS ORDERED: BENZOCAINE 20% SPRY 85 APPLN/85 GM CAN EXT PRN (08:40)
[2023-01-11] MEDS ORDERED: SENNA 8.6 MG TAB PO PRN (08:40)
--- NOTE | 2023-01-11 08:43 | Post Operative Brief Note ---
Immediate Post Op Note v1 Date of Surgery January 11, 2023 Pre & Post Diagnosis Operation Date: 01/11/23 07:30 Pre-Op Diagnosis: A: Repeat with bilateral salpingectomy B: Refused Trial of labor C: Labor Post-Op Diagnosis: A: Repeat with bilateral salpingectomy B: Refused Trial of labor C: Labor I identified the patient and participated in the time-out.: Yes Procedure Operation Date: 01/11/23 07:30 Actual Procedures p Section in LD with result of live male child at 0753 - Elroy Barrios MD Surgeon Elroy Barrios MD Bacteriologist Medical Trish RN Estimated Blood Loss 500 Findings Consistent with Post-Op Diagnosis live male apgars 6/7 5# nuchal cord x2 Fluids 1200 ml. LR Specimens placenta Anesthesia Type Spinal Complications none Disposition Accompanied Patient To Recovery: Yes Overlapping Procedure I was present for: the critical portions of procedure. I was immediately available: during the entire case. Back up surgeon: was not required during procedure.
--- NOTE | 2023-01-11 08:48 | Operative Report ---
Post Operative Report Pre & Post Diagnosis Operation Date: 01/11/23 07:30 Pre-Op Diagnosis: A: Repeat with bilateral salpingectomy B: Refused Trial of labor C: Labor Post-Op Diagnosis: A: Repeat with bilateral salpingectomy B: Refused Trial of labor C: Labor I identified the patient and participated in the time-out.: Yes Procedure Operation Date: 01/11/23 07:30 Actual Procedures p Section in LD with result of live male child at 0753 - Elroy Barrios MD Surgeon Elroy Barrios MD Food And Nutrition Supervisor SUNDAY Chambers Estimated Blood Loss 500 Findings Consistent with Post-Op Diagnosis see note Fluids LR 1200 ml. Specimens placenta Drains Gibson Anesthesia Type Spinal Complications none Indications labor refusing TOLAC repeat section in labor desire for permanent sterilization Description of Procedure Under satisfactory spinal anesthesia the patient was prepped draped usual sterile fashion. A timeout was called prior to the start of the procedure antibiotics were given preop. A low Pfannenstiel incision through her prior scar was then made entering into the abdominal cavity in successive layers without difficulty. Upon entering into the abdominal cavity the peritoneum was opened a bladder flap was then made with sharp dissection transversely low segment transverse incision was then made entering into the uterine cavity amniotic sac was then nicked clear fluid was noted the incision was widened in the AP diameter. The was then delivered from the vertex presentation with the aid of fundal pressure. The delivery was accomplished without difficulty delivering a live male Apgars were 6 and 7 there was a nuchal cord x2 which was reduced at time of delivery weight is 5 pounds. After 1 minute cord delay the cord was clamped and cut the baby was then handed to the diatrician present for the delivery. Cord blood was obtained and the placenta was then delivered spontaneously and intact and submitted to pathology. The uterus was then exteriorized ring forceps were then placed on both angles and the inferior margin uterus was closed with a single layer with #1-0 Vicryl suture in a continuous interlocking fashion. Tubes ovaries bilaterally were found to be within normal limits. The initial sponge needle instrument count were found to be correct. The hand-held LigaSure device was then used to remove both the right and the left tube tubes serially without difficulty hemostasis was was accomplished. The uterus was then placed back into the normal anatomical position the lower uterine segment was once more inspected no active bleeding was noted. The fascia was then reapproximated using 0 Vicryl suture in a continuous fashion subcuticular space was irrigated and closed with 3-0 plain suture interrupted. The skin was then reapproximated with michelle Telfa and sponge dressing and ABD dressing were then applied. Clear urine was known noted from the Gibson estimated major blood loss was 500 mL urine output was 50 mL and total fluids 1200 mL the final sponge needle instrument count were found to be correct the patient was then placed supine on stretcher taken to recovery room in stable condition thank you I attest to the content of the Intraoperative Record and any orders documented therein. Any exceptions are noted below.
[2023-01-11] MEDS ORDERED: [UNRECOGNIZED DRUG - OTHER] PO SCH (09:00)
[2023-01-11] MEDS ORDERED: EPINEPHrine INJ 1 MG/ML AMP IM PRN (09:04)
[2023-01-11] MEDS: FOLIC ACID 400 MCG TAB PO SCH (10:47)
[2023-01-11] MEDS: OXYTOCIN 20 UNITS in LACTATED RINGER'S 1,000 ML IV SCH ×2 (11:14→22:11)
--- NOTE | 2023-01-11 12:00 | Anesthesiology Progress Note ---
Date of Service January 11, 2023 Anesthesia Post Procedure Vital Signs Vital Signs: Temp Pulse Resp BP Pulse Ox 01/11/23 10:30 97.9 F 18 01/11/23 10:00 18 01/11/23 09:30 18 01/11/23 09:20 18 01/11/23 09:10 16 01/11/23 09:00 16 01/11/23 08:50 18 01/11/23 09:30 18 01/11/23 08:40 16 01/11/23 08:30 97.7 F 18 01/11/23 05:53 98.4 F 81 18 108/63 01/11/23 10:45 50 L 100 01/11/23 10:41 51 L 103/54 L 01/11/23 10:40 56 L 100 01/11/23 10:35 52 L 100 01/11/23 10:30 99 01/11/23 10:30 48 L 01/11/23 10:30 48 L 109/58 L 01/11/23 10:25 53 L 100 01/11/23 10:20 99 01/11/23 10:20 53 L 01/11/23 10:20 48 L 111/56 L 01/11/23 10:15 54 L 99 01/11/23 10:10 52 L 122/67 100 01/11/23 10:05 57 L 98 01/11/23 10:01 54 L 100/55 L 01/11/23 10:00 60 99 01/11/23 09:55 61 99 01/11/23 09:50 54 L 97/67 L 98 01/11/23 09:45 56 L 98 01/11/23 09:40 55 L 104/67 98 01/11/23 09:35 55 L 98 01/11/23 09:30 57 L 110/68 97 01/11/23 09:25 56 L 98 01/11/23 09:20 98 01/11/23 09:20 57 L 01/11/23 09:20 51 L 104/60 01/11/23 09:15 55 L 97 01/11/23 09:10 97 01/11/23 09:10 55 L 01/11/23 09:10 56 L 103/58 L 01/11/23 09:05 57 L 98 01/11/23 09:00 54 L 92/50 L 98 01/11/23 08:55 63 97 01/11/23 08:50 98 01/11/23 08:50 61 01/11/23 08:50 60 107/64 01/11/23 08:45 59 L 98 01/11/23 08:40 98 01/11/23 08:40 58 L 01/11/23 08:40 56 L 102/57 L 01/11/23 08:35 66 97 01/11/23 08:30 95 01/11/23 08:30 64 01/11/23 08:30 62 104/55 L 01/11/23 05:51 81 108/63 Pain Intensity Abdomen: Pain Intensity: 1 Transfer of Care Handoff Completed per policy Notes Mental Status: alert / awake / arousable and participated in evaluation Patient Amnestic to Procedure: No Nausea / Vomiting: adequately controlled Pain: adequately controlled Airway Patency, RR, SpO2: stable & adequate BP & HR: stable & adequate Hydration State: stable & adequate Neuraxial Anesthesia: was administered and sensory block is resolving Anesthetic Complications: no major complications apparent and Pt Satisfied with anesthetic care
[2023-01-11] MEDS: SIMETHICONE 80 MG CHEW PO SCH ×4 (13:13→20:18)
[2023-01-11] MEDS: KETOROLAC 30 MG/ML VIAL IV PRN (18:16)
[2023-01-11] MEDS: DOCUSATE SODIUM 100 MG CAP PO SCH (20:15)
[2023-01-12] MEDS: KETOROLAC 30 MG/ML VIAL IV PRN (01:56)
[2023-01-12] MEDS ORDERED: ONDANSETRON INJ 2 MG/ML 2 ML VIAL IV PRN (02:04)
[2023-01-12] MEDS ORDERED: MEPERIDINE HCL 50 MG/ML CARP IV PRN (02:04)
[2023-01-12] MEDS ORDERED: diphenhydrAMINE Capsule 25 MG CAP PO PRN (02:04)
[2023-01-12] MEDS ORDERED: diphenhydrAMINE 50 MG/ML VIAL IV PRN (02:04)
[2023-01-12] MEDS ORDERED: KETOROLAC 30 MG/ML VIAL IV PRN (02:04)
[2023-01-12] MEDS ORDERED: PROMETHAZINE HCL 25 MG in SODIUM CHLORIDE 0.9% 50 ML IV PRN (02:04)
[2023-01-12] MEDS ORDERED: CITRIC ACID/SODIUM CITRATE 15 ML UDC PO SCH (06:00)
[2023-01-12 06:33] LABS: Basophils # (auto) 0.05 K/uL (0.00-0.20); Basophils % (auto) 0.4 %; Eosinophils # (auto) 0.13 K/uL (0.00-0.50); Hematocrit (blood only) 28.4 % (37.0-47.0); Hemoglobin 9.7 g/dl (12.0-16.0); Immature Granulocytes # (auto) 0.07 K/uL (0.01-0.20); Immature Granulocytes % (auto) 0.5 %; Lymphocytes # (auto) 2.07 K/uL (1.20-3.40); Lymphocytes % (auto) 15.2 %; Mean Corpuscular Hemoglobin 29.8 pg (25.0-34.0); Mean Corpuscular Hgb Conc 34.2 g/dL (32.0-36.0); Mean Corpuscular Volume 87.1 fL (80.0-100.0); Mean Platelet Volume 9.8 fL (9.4-12.4); Monocytes # (auto) 0.68 K/uL (0.11-0.59); Neutrophils # (auto) 10.61 K/uL (1.40-6.50); Neutrophils % (auto) 77.9 %; Platelet Count 236 K/uL (130-400); RDW Coefficient of Variation 13.3 % (11.5-14.5); RDW Standard Deviation 41.7 fL (36.4-46.3); Red Blood Count 3.26 M/uL (4.20-5.40); White Blood Count 13.61 K/ul (4.8-10.8)
[2023-01-12] MEDS ORDERED: FERROUS SULFATE 325 MG TAB PO SCH (08:00)
[2023-01-12] MEDS: DOCUSATE SODIUM 100 MG CAP PO SCH ×2 (08:05→20:14)
[2023-01-12] MEDS: oxyCODONE/ACETAMINOPHEN 5mg/325mg TAB PO PRN ×4 (08:05→22:15)
[2023-01-12] MEDS: FERROUS SULFATE 325 MG TAB PO SCH (08:05)
[2023-01-12] MEDS: IBUPROFEN 600 MG TAB PO PRN ×4 (08:05→22:15)
[2023-01-12] MEDS: SIMETHICONE 80 MG CHEW PO SCH ×4 (08:05→20:14)
[2023-01-12] MEDS: PRENATAL VITAMIN 1 TAB PO SCH (08:05)
[2023-01-12] MEDS: FOLIC ACID 400 MCG TAB PO SCH (08:07)
--- NOTE | 2023-01-12 09:05 | Obstetrical Progress Note ---
Date of Service January 12, 2023 Subjective Ambulation: ambulating normally Voiding: no voiding problems Passing Gas:: Yes Diet Tolerance:: regular diet Lochia:: Small Feeding Type:: bottle feeding Current Pain Level(1-10): 0 doing well Physical Exam Constitutional WD/WN, vitals as above Gastrointestinal (Abdomen) Inspection/Auscultation: abdomen normal to inspection and + abdominal surgical incision incision c/d/i Musculoskeletal Extremities: extremities normal to inspection Skin no rashes, warm and dry Neurologic patellar DTR's 2+ bilat, sensation intact Psychiatric A+Ox3, euthymic affect Results & Data Vital Signs (Past 12 Hours) Vital Signs Temp Pulse Resp BP Pulse Ox O2 Del Method 01/12/23 07:50 36.7 C 53 L 16 103/62 Room Air 01/12/23 02:47 36.8 C 69 18 102/63 97 Room Air 01/12/23 02:33 16 97 01/12/23 01:15 18 97 01/11/23 21:30 18 98 01/11/23 23:14 36.8 C 76 18 106/67 98 Room Air 01/11/23 23:30 16 98 01/11/23 22:30 18 96 01/12/23 00:01 20 97 Laboratory Results Laboratory Results - last 72 hr 01/11/23 01/11/23 01/12/23 06:39 06:39 05:52 WBC 19.95 H 13.61 H RBC 3.89 L 3.26 L Hgb 11.4 L 9.7 L Hct 33.9 L 28.4 L MCV 87.1 87.1 MCH 29.3 29.8 MCHC 33.6 34.2 RDW Std Deviation 42.5 41.7 RDW Coeff of [place] 13.5 13.3 Plt Count 282 236 MPV 9.8 9.8 Immature Gran % (Auto) 0.6 0.5 Neut % (Auto) 84.3 77.9 Lymph % (Auto) 9.9 15.2 [place] % (Auto) 4.2 5.0 Eos % (Auto) 0.4 1.0 Baso % (Auto) 0.6 0.4 Neut # (Auto) 16.84 H 10.61 H Lymph # (Auto) 1.98 2.07 Miner # (Auto) 0.83 H 0.68 H Eos # (Auto) 0.08 0.13 Baso # (Auto) 0.11 0.05 Immature Gran # (Auto) 0.11 0.07 Blood Type O Positive Antibody Screen NEGATIVE Diagnostic Findings Laboratory Results - last 72 hr 01/11/23 01/11/23 01/12/23 06:39 06:39 05:52 WBC 19.95 H 13.61 H RBC 3.89 L 3.26 L Hgb 11.4 L 9.7 L Hct 33.9 L 28.4 L MCV 87.1 87.1 MCH 29.3 29.8 MCHC 33.6 34.2 RDW Std Deviation 42.5 41.7 RDW Coeff of [place] 13.5 13.3 Plt Count 282 236 MPV 9.8 9.8 Immature Gran % (Auto) 0.6 0.5 Neut % (Auto) 84.3 77.9 Lymph % (Auto) 9.9 15.2 [place] % (Auto) 4.2 5.0 Eos % (Auto) 0.4 1.0 Baso % (Auto) 0.6 0.4 Neut # (Auto) 16.84 H 10.61 H Lymph # (Auto) 1.98 2.07 Miner # (Auto) 0.83 H 0.68 H Eos # (Auto) 0.08 0.13 Baso # (Auto) 0.11 0.05 Immature Gran # (Auto) 0.11 0.07 Blood Type O Positive Antibody Screen NEGATIVE
[2023-01-12] MEDS ORDERED: bisacodyL 5 MG TABEC PO SCH (20:00)
[2023-01-13 06:59] LABS: Hematocrit (blood only) 32.6 % (37.0-47.0)
[2023-01-13] MEDS ORDERED: bisacodyL 10 MG SUPP PR PRN (08:38)
[2023-01-13] MEDS: oxyCODONE/ACETAMINOPHEN 5mg/325mg TAB PO PRN (09:16)
[2023-01-13] MEDS: FERROUS SULFATE 325 MG TAB PO SCH (09:16)
[2023-01-13] MEDS: DOCUSATE SODIUM 100 MG CAP PO SCH (09:16)
[2023-01-13] MEDS: IBUPROFEN 600 MG TAB PO PRN (09:16)
[2023-01-13] MEDS: SIMETHICONE 80 MG CHEW PO SCH (09:16)
[2023-01-13] MEDS: PRENATAL VITAMIN 1 TAB PO SCH (09:16)
[2023-01-13] MEDS: FOLIC ACID 400 MCG TAB PO SCH (09:18)
--- NOTE | 2023-01-13 10:57 | Obstetrical Progress Note ---
Date of Service January 13, 2023 Subjective Ambulation: ambulating normally Voiding: no voiding problems Passing Gas:: Yes Diet Tolerance:: regular diet Lochia:: Small Feeding Type:: bottle feeding Current Pain Level(1-10): 0 doing well Physical Exam Constitutional WD/WN, vitals as above Gastrointestinal (Abdomen) Inspection/Auscultation: abdomen normal to inspection and + abdominal surgical incision incision c/d/i Musculoskeletal Extremities: extremities normal to inspection Skin no rashes, warm and dry Neurologic patellar DTR's 2+ bilat, sensation intact Psychiatric A+Ox3, euthymic affect Results & Data Vital Signs (Past 12 Hours) Vital Signs Temp Pulse Resp BP Pulse Ox O2 Del Method 01/13/23 09:00 36.8 C 56 L 16 103/65 Room Air 01/12/23 23:27 36.7 C 72 18 96/60 L 98 Room Air Laboratory Results Laboratory Results - last 48 hr 01/12/23 01/13/23 05:52 06:26 WBC 13.61 H RBC 3.26 L Hgb 9.7 L 11.0 L Hct 28.4 L 32.6 L MCV 87.1 MCH 29.8 MCHC 34.2 RDW Std Deviation 41.7 RDW Coeff of Travis 13.3 Plt Count 236 MPV 9.8 Immature Gran % (Auto) 0.5 Neut % (Auto) 77.9 Lymph % (Auto) 15.2 [place] % (Auto) 5.0 Eos % (Auto) 1.0 Baso % (Auto) 0.4 Neut # (Auto) 10.61 H Lymph # (Auto) 2.07 [place] # (Auto) 0.68 H Eos # (Auto) 0.13 Baso # (Auto) 0.05 Immature Gran # (Auto) 0.07
== END 2023-01-13 13:00 | disposition home or self-care (01) | DRG 785 ==
LOC: OPB 05:40 → 4S1 05:42 → 4E2 10:40